=== PATIENT | male | born 1960 | race Caucasian/White ===

== ENCOUNTER → 2016-07-10 | Outpatient (CLI) | payer BC, OTHER ==
[~2016-07-10] MED LIST: ACET50TA PO; CALC500T36 PO; CALCTAB93 PO; CEFD1CAP8 PO; CIPR500T89 PO; E-Z-PAQUE 96% w/w SUSP 176GM BTL As Ordered ONE; FLAG500T PO; LIQUID POLIBAR PLUS 105% w/v 1900ML BTL As Ordered ONE; METR500T10 PO; TYLE650T30 PO; VITA10006 PO; VITACAP33 PO
--- NOTE | 2016-07-10 17:35 | REP ---
BARIUM ENEMA SINGLE CONTRAST: The procedure was performed under the direct supervision of Dr. Jacobs. The images were reviewed with Dr. Jacobs. The registered respiratory therapist film demonstrates dilated loops of small and large intestine consistent with a left colonic obstruction. Liquid barium was instilled into the colon in a retrograde flow. 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 3 minutes and 58 seconds of fluoroscopic time was utilized for this procedure. Reviewed by WENDY Allen 07/11/2016 04:35 PEdited and Signed by Donta Jacobs MD 07/11/2016 04:51 P
== END ==
LOC: M RAD 08:35
PROVIDERS: ATTEND Physician Assistant Medical
DX: R93.3 Abnormal findings on diagnostic imaging of other parts of digestive tract (principal); R19.7 Diarrhea, unspecified; R63.4 Abnormal weight loss; R10.84 Generalized abdominal pain

== ENCOUNTER → 2016-07-15 | Outpatient (CLI) | payer BC, OTHER ==
[~2016-07-15] MED LIST changes: +CALC600T53 PO; -E-Z-PAQUE 96% w/w SUSP 176GM BTL As Ordered ONE; -LIQUID POLIBAR PLUS 105% w/v 1900ML BTL As Ordered ONE; +MIRA33504 PO; +NEXI20CA PO
[2016-07-15 08:49] LABS: MEAN CORPUSCULAR HEMOGLOBIN 26.6 pg (27.0-33.0); MEAN CORPUSCULAR HGB CONC 32.5 g/dl (32.0-36.5); RED CELL DISTRIBUTION WIDTH 14.7 % (11.5-14.5); WHITE BLOOD COUNT 6.5 K/mm3 (4.0-10.0)
[2016-07-15 09:24] LABS: BASOPHILS 1 % (0-4); EOSINOPHILS 2 % (0-5)
[2016-07-15 11:10] LABS: ANION GAP 11 MEQ/L (8-16); BLOOD UREA NITROGEN 10 MG/DL (7-18); CARBON DIOXIDE LEVEL 27 MEQ/L (21-32); CHLORIDE LEVEL 104 MEQ/L (98-107); CREATININE FOR GFR 0.84 MG/DL (0.70-1.30); GLOMERULAR FILTRATION RATE > 60.0 (>56); GLUCOSE, FASTING 98 MG/DL (70-105); POTASSIUM SERUM 4.3 MEQ/L (3.5-5.1); SODIUM LEVEL 142 MEQ/L (136-145)
[2016-07-15 11:11] LABS: ALBUMIN 3.6 GM/DL (3.2-5.2); ALBUMIN/GLOBULIN RATIO 0.95 (1.00-1.93); ALKALINE PHOSPHATASE 68 U/L (45-117); ALT/SGPT 19 U/L (12-78); AST/SGOT 15 U/L (15-37); BILIRUBIN,TOTAL 0.6 MG/DL (0.2-1.0); TOTAL PROTEIN 7.4 GM/DL (6.4-8.2)
[2016-07-16 09:21] LABS: CARCINOEMBRYONIC ANTIGEN 0.9 NG/ML (<2.5)
== END ==
LOC: M LAB 08:33
PROVIDERS: ATTEND Surgery
DX: K57.32 Diverticulitis of large intestine without perforation or abscess without bleeding (principal)

== ENCOUNTER 2016-07-19 07:35 | Inpatient (IN) | payer BC, OTHER ==
[2016-07-19] VITALS (7 sets, daily range): BP systolic 124–136; BP diastolic 67–77
[~2016-07-19] VITALS: Ht 175.3 cm; Wt 78.5 kg
[~2016-07-19 07:35] MED LIST changes: +BUPIVACAINE HCL 0.25% 30 ML VIAL As Ordered ONE
[2016-07-19] MEDS ORDERED: ALVIMOPAN 12 MG CAPSULE (ENTEREG) PO ONE (08:00)
[2016-07-19] MEDS ORDERED: ERTAPENEM SODIUM 1 GM in NS MINI-BAG PLUS 50 ML IV ONE (08:00)
[2016-07-19] MEDS ORDERED: LR 1,000 ML IV SCH ×3 (08:00→15:45)
[2016-07-19] MEDS ORDERED: LIDOCAINE 2% INJ 100 MG/5 ML SDV (FOR ANES.) As Ordered ONE (08:32)
[2016-07-19] MEDS ORDERED: MIDAZOLAM INJ 2 MG/2 ML VIAL (J2250) As Ordered ONE (08:32)
[2016-07-19] MEDS ORDERED: ROCURONIUM BROMIDE 50 MG/5 ML VIAL As Ordered ONE ×2 (08:32→10:57)
[2016-07-19] MEDS ORDERED: PROPOFOL 200 MG/20 ML VIAL As Ordered ONE (08:32)
[2016-07-19] MEDS ORDERED: dexameTHASONE 4 MG/ML 1ML VIAL (J1100) As Ordered ONE (08:32)
[2016-07-19] MEDS ORDERED: fentaNYL 250 MCG/5 ML INJECTION (J3010) As Ordered ONE (08:32)
[2016-07-19] MEDS ORDERED: NEOSTIGMINE 1MG/ML 5 ML SYRINGE (J2710) As Ordered ONE ×2 (08:36→12:07)
[2016-07-19] MEDS ORDERED: GLYCOPYRROLATE INJ 0.2 MG/ML 2 ML VIAL As Ordered ONE ×2 (08:36→12:07)
[2016-07-19] MEDS ORDERED: SUGAMMADEX SODIUM 500 MG/5 ML VIAL (BRIDION) As Ordered ONE (08:37)
[2016-07-19] MEDS ORDERED: ePHEDrine SULFATE 25 MG/5 ML(5MG/ML) SYRINGE As Ordered ONE (10:25)
[2016-07-19] MEDS ORDERED: REMIFENTANIL 1MG 3ML VIAL As Ordered ONE ×2 (11:15)
[2016-07-19] MEDS ORDERED: BUPIVACAINE HCL 0.25% 30 ML VIAL XX ONE (11:26)
[2016-07-19] MEDS ORDERED: HYDROmorphone HCL 2 MG/ML 1ML VIAL (J1170) As Ordered ONE (12:06)
[2016-07-19] MEDS ORDERED: SEVOFLURANE INHAL SOLN 250 ML BTL As Ordered ONE (12:36)
[2016-07-19] MEDS ORDERED: ONDANSETRON 4MG/2ML VIAL (J2405) As Ordered ONE (12:53)
[2016-07-19] MEDS ORDERED: KETOROLAC 60 MG/2 ML VIAL (J1885) As Ordered ONE (14:21)
[2016-07-19] MEDS: LR 1,000 ML IV SCH (14:47)
[2016-07-19] MEDS ORDERED: MORPHINE 2 MG/ML 1ML SYRINGE IV PRN (15:00)
[2016-07-19] MEDS ORDERED: ACETAMINOPHEN TAB 650MG DOSE (2X325MG) PO PRN (15:00)
[2016-07-19] MEDS ORDERED: ONDANSETRON 4MG/2ML VIAL (J2405) IV PRN ×2 (15:00→15:45)
[2016-07-19] MEDS ORDERED: NORCO, ANEXSIA 5/325MG TABLET (HYDROcodone/ACETAMINOPHEN) PO PRN (15:00)
[2016-07-19] MEDS ORDERED: METOCLOPRAMIDE INJ 10MG/2ML VIAL (J2765) IV PRN ×2 (15:00→15:45)
[2016-07-19] MEDS ORDERED: fentaNYL 100 MCG/2 ML INJECTION (J3010) As Ordered ONE (15:29)
[2016-07-19] MEDS: fentaNYL 100 MCG/2 ML INJECTION (J3010) IV PRN ×2 (15:30→15:35)
[2016-07-19] MEDS ORDERED: PERCOCET 5MG/325MG TAB PO PRN (15:45)
[2016-07-19] MEDS: PANTOPRAZOLE 40MG INJ (PROTONIX) (C9113) IV SCH (17:13)
[2016-07-19] MEDS: ENOXAPARIN 40 MG/0.4 ML SYRINGE (J1650) SC SCH (17:14)
[2016-07-19] MEDS: ALVIMOPAN 12 MG CAPSULE (ENTEREG) PO SCH (21:23)
[2016-07-19] MEDS: KETOROLAC 30 MG/ML VIAL (J1885) IV SCH (21:24)
[2016-07-20] MEDS: LR 1,000 ML IV SCH (01:26)
[2016-07-20 02:00] VITALS: BP 114/72
[2016-07-20] MEDS: KETOROLAC 30 MG/ML VIAL (J1885) IV SCH ×4 (04:01→20:12)
[2016-07-20 06:00] VITALS: BP 115/64
[2016-07-20 06:37] LABS: EOS % 0.5 % (0.0-3.0); LARGE UNSTAINED CELL # 0.1 K/mm3 (0.0-0.4); LARGE UNSTAINED CELL % 1.7 % (0.0-4.0); LYMPH # 1.3 K/mm3 (1.5-4.5); MEAN CORPUSCULAR HEMOGLOBIN 26.9 pg (27.0-33.0); MEAN CORPUSCULAR HGB CONC 31.9 g/dl (32.0-36.5); MEAN CORPUSCULAR VOLUME 84.3 fl (80.0-96.0); MONO # 0.4 K/mm3 (0.0-0.8); MONO % 5.5 % (0.0-5.0); NEUTROPHILS # 4.8 K/mm3 (1.8-7.7); NEUTROPHILS % 72.3 % (36.0-66.0); PLATELET COUNT, AUTOMATED 216 k/mm3 (150-450); RED CELL DISTRIBUTION WIDTH 13.7 % (11.5-14.5); WHITE BLOOD COUNT 6.6 K/mm3 (4.0-10.0)
[2016-07-20 07:02] LABS: ANION GAP 8 MEQ/L (8-16); BLOOD UREA NITROGEN 9 MG/DL (7-18); CARBON DIOXIDE LEVEL 29 MEQ/L (21-32); CHLORIDE LEVEL 105 MEQ/L (98-107); CREATININE FOR GFR 0.73 MG/DL (0.70-1.30); GLOMERULAR FILTRATION RATE > 60.0 (>56); GLUCOSE, FASTING 89 MG/DL (70-105); POTASSIUM SERUM 3.8 MEQ/L (3.5-5.1); SODIUM LEVEL 142 MEQ/L (136-145)
[2016-07-20] MEDS: ENOXAPARIN 40 MG/0.4 ML SYRINGE (J1650) SC SCH (09:15)
[2016-07-20] MEDS: PANTOPRAZOLE 40MG INJ (PROTONIX) (C9113) IV SCH (09:15)
[2016-07-20] MEDS: ALVIMOPAN 12 MG CAPSULE (ENTEREG) PO SCH ×2 (09:15→20:11)
[2016-07-20] MEDS: NORCO, ANEXSIA 5/325MG TABLET (HYDROcodone/ACETAMINOPHEN) PO PRN (09:15)
[2016-07-20 10:00] VITALS: BP 121/69
--- NOTE | 2016-07-20 11:40 | RO ---
DATE OF PROCEDURE: 07/19/2016 PREOPERATIVE DIAGNOSIS: Sigmoid colon obstruction. POSTOPERATIVE DIAGNOSIS: Sigmoid colon obstruction. PROCEDURE PERFORMED: Laparoscopic sigmoid colectomy with stapled colorectal anastomosis SURGEON: Dr. Evaristo Das MORNING NANNY: Dr. Guy ANESTHESIA: General. INDICATIONS FOR PROCEDURE: The patient is a 56-year-old man who recently presented with a long history of symptoms consistent with a worsening sigmoid obstruction. A barium enema showed an apple core type lesion in the sigmoid colon with high-grade obstruction. He had undergone a colonoscopy approximately a year and half earlier that had shown a stricture at that time with no evidence of cancer. He has been passing some stool and it was possible to perform a bowel preparation and he is now admitted to undergo a sigmoid resection. OPERATIVE PROCEDURE: The patient was placed under general endotracheal anesthesia. The patient was placed supine on the operating table with the lower extremities placed in padded leg holders. A Persaud catheter was inserted. A digital rectal examination showed no palpable lesions within the rectum. The patient's abdomen and perineum were prepped and draped in a sterile fashion. 0.25% Marcaine was infiltrated at each of the trocar sites prior to insertion. A short supraumbilical midline incision was made and a Francy cannula was inserted. The abdomen was insufflated with carbon dioxide gas. The laparoscope was placed. Initial examination showed dilated colon as well as dilated loops of small bowel in the right side of the abdomen. There were inflammatory changes in the left side of the pelvis where the sigmoid colon was densely adherent to the lateral pelvic wall. A 5 mm trocar was placed in the right lower quadrant slightly below the level of the umbilicus. A 12 mm trocar was placed in the right lower quadrant. The patient was tilted to a fairly steep Trendelenburg position. Dissection was performed using the harmonic scalpel. The omentum was adherent down onto the sigmoid colon and these adhesions were lysed and the omentum moved into the upper abdomen. The attachments of the sigmoid colon to the lateral pelvic wall were quite dense. Some filmier areas of adhesions could be divided easily but the denser areas were more difficult. The lateral attachments of the descending colon were divided proximally to the proximal descending. This provided some leeway in mobilization of the sigmoid. In order to simplify the dissection of the sigmoid, the colon was divided just proximal to this with an echelon stapler. Because the colon was quite dilated, it was necessary to use two loads of the stapler to complete the division of the colon. The mesentery was divided down to its base. Then working distally, the attachments of the sigmoid colon mesentery were divided. The left ureter was identified and carefully preserved during the course of dissection. The harmonic scalpel was used primarily to divide the dense attachments of the colon to the pelvic sidewall. With slow careful dissection, it was possible to obtain a complete freeing of the sigmoid colon. Once this had been freed, a point for division of the rectosigmoid area was selected. The mesentery was divided to the bowel wall and the upper rectum was divided with the echelon stapler. The pelvis was irrigated and inspected and there was no significant bleeding. The appearance of the colon was, I thought, most consistent with inflammatory disease from diverticulitis with extensive scarring rather than cancer. Initial inspection suggested that the colon was not mobile enough to reach down into the pelvis for an anastomosis at this point. Therefore the patient was repositioned and additional dissection of the descending colon was performed. Some of the attachments in the area of the spleen were divided to allow greater mobility. The peritoneum overlying the inferior mesenteric artery was also divided to allow greater mobility. Once these additional steps had been taken, it appeared that the colon was now long enough to reach for a pelvic anastomosis. In the course of dissection a fourth trocar, 5 mm in diameter, was placed in the left upper quadrant for additional traction. At this point, the abdomen was deflated and an incision was made beginning at the Bella site and extending down around the left side of the umbilicus. This incision was extended to approximately 6 cm. A small Mobius retractor was placed. The specimen was grasped and delivered through the incision without significant difficulty. The specimen was set aside for now. The end of the descending colon was then delivered through the wound. The bowel appeared viable. There was a small duskier area at one end of the staple line. The colon remained somewhat distended with air and some fluid. The wall of the colon was quite hypertrophied and muscular. The bowel was occluded with noncrushing clamps and the end of the staple line was excised. A long pool sucker was inserted and the bowel clamps were removed and the suction advanced as high up in the descending colon as possible. A large amount of air and some liquid yellow/green stool was returned. The suction was removed. I elected to prepare the end of the colon for an anastomosis. Because of the thickening of the bowel wall, I elected to take some additional steps. I selected a 33 mm EEA stapler. The anvil was removed. The sharply pointed attachment was placed on the post of the anvil and this was inserted into the end of the colon. The opened area of the staple line was then re-stapled excising a small portion of the colon in this area with an echelon stapler. The post of the anvil was then passed through the end of the colon adjacent to the staple line at about the midpoint of the staple line. The ends of the staple line, which would not be involved in the anastomosis were then oversewn with inverting sutures of #3-0 Vicryl. The end of the bowel was then irrigated. I placed a small pursestring suture around the post of the anvil to prevent leakage. This was then reduced into the abdomen. The surgical team then changed gowns and gloves. The abdominal incision was closed with #0 chromic on the peritoneum and interrupted #1-0 Vicryl sutures for the fascia. The abdomen was then reinflated. With the patient in a Trendelenburg position, the post of the anvil was then grasped and the colon was advanced down into the pelvis. I then moved to the perineum. The anus and rectum were gently dilated with the EEA sizers and the EEA stapler was then advanced into the rectum and advanced to the stapled end without significant difficulty. The post of the stapler was advanced adjacent to the staple line and the post of the anvil was attached and the stapler was then carefully closed and fired. The stapler was removed and inspection revealed two excellent tissue doughnuts from within the stapler. A flexible sigmoidoscopic exam was performed with a colonoscope. This revealed a nice intact circular anastomosis. There was a minimal amount of particulate debris and liquid within the colon. There was no bleeding seen. The anastomosis appeared to lie at approximately 17 cm from the anal verge. The scope was removed. No air bubbles had been seen at the anastomosis with insufflation of air into the rectum. I then changed gown and gloves and returned to the abdomen. The abdomen was cleared of all of the irrigation, which had been placed for the leak test. The patient was returned to a flat position. There did not appear to be any tension on the anastomosis. No bleeding was identified. The 12 mm trocar in the right lower quadrant was removed and the inner fascia and peritoneum were closed with a suture of #0 Vicryl placed with an Endo Close device. The abdomen was then deflated through the remaining two trocars and these were then removed. The skin incisions were all closed with buried #4-0 Vicryl. Light dressings were applied. The patient tolerated the procedure well. I would note that just prior to completing the anastomosis, the specimen was opened on the back table. The wall of the bowel was quite thickened but opening of the lumen showed no mucosal abnormalities. These findings were consistent with inflammatory changes from diverticulitis. The patient was awakened in the operating room, extubated and moved to the recovery room in stable condition. RACHELLE
[2016-07-20 14:00] VITALS: BP 126/72
[2016-07-20] MEDS: SIMETHICONE 80 MG CHEW TAB PO PRN (20:43)
[2016-07-20 22:00] VITALS: BP 126/71
[2016-07-21 02:00] VITALS: BP 119/64
[2016-07-21] MEDS: KETOROLAC 30 MG/ML VIAL (J1885) IV SCH ×3 (02:07→15:58)
[2016-07-21] MEDS: SIMETHICONE 80 MG CHEW TAB PO PRN (02:07)
[2016-07-21 06:00] VITALS: BP 135/63
[2016-07-21] MEDS: NORCO, ANEXSIA 5/325MG TABLET (HYDROcodone/ACETAMINOPHEN) PO PRN ×3 (09:00→21:57)
[2016-07-21] MEDS: PANTOPRAZOLE 40MG INJ (PROTONIX) (C9113) IV SCH (09:00)
[2016-07-21] MEDS: ENOXAPARIN 40 MG/0.4 ML SYRINGE (J1650) SC SCH (09:00)
[2016-07-21] MEDS: ALVIMOPAN 12 MG CAPSULE (ENTEREG) PO SCH ×2 (09:00→20:36)
[2016-07-21 10:00] VITALS: BP 129/66
[2016-07-21 14:00] VITALS: BP 106/58
[2016-07-21 22:00] VITALS: BP 155/76
[2016-07-21] MEDS: LR 1,000 ML IV SCH (22:57)
[2016-07-21 23:43] LABS: MEAN CORPUSCULAR HEMOGLOBIN 26.8 pg (27.0-33.0); MEAN CORPUSCULAR HGB CONC 32.4 g/dl (32.0-36.5); MEAN CORPUSCULAR VOLUME 82.6 fl (80.0-96.0); RED CELL DISTRIBUTION WIDTH 13.7 % (11.5-14.5); WHITE BLOOD COUNT 5.2 K/mm3 (4.0-10.0)
[2016-07-22] VITALS (9 sets, daily range): BP systolic 94–115; BP diastolic 51–69
--- NOTE | 2016-07-22 00:20 | REPUSA ---
CLINICAL HISTORY: Abdominal pain. COMMENTS: There is gas in both large and small bowel with no evidence for obstruction. Large amount of fecal material is present through out the colon. There is no evidence for free air, free fluid, masses, organomegaly, or urinary calculi. Impression: Large amount of fecal material. Thank you for your kind referral of this patient.
[2016-07-22] MEDS: NORCO, ANEXSIA 5/325MG TABLET (HYDROcodone/ACETAMINOPHEN) PO PRN (03:45)
[2016-07-22] MEDS: SIMETHICONE 80 MG CHEW TAB PO PRN (05:14)
[2016-07-22] MEDS: ALVIMOPAN 12 MG CAPSULE (ENTEREG) PO SCH ×3 (08:28→23:03)
[2016-07-22] MEDS: ENOXAPARIN 40 MG/0.4 ML SYRINGE (J1650) SC SCH (08:28)
[2016-07-22] MEDS: PANTOPRAZOLE 40MG INJ (PROTONIX) (C9113) IV SCH (08:28)
[2016-07-22] MEDS: LR 1,000 ML IV SCH ×3 (08:28→19:00)
[2016-07-22] MEDS: PIPERACILLIN/TAZOBACTAM SOD 3.375 GM in D5W MINI-BAG PLUS 50 ML IV SCH ×3 (08:29→22:36)
[2016-07-22 08:56] LABS: MEAN CORPUSCULAR HEMOGLOBIN 26.8 pg (27.0-33.0); MEAN CORPUSCULAR HGB CONC 32.3 g/dl (32.0-36.5); PLATELET COUNT, AUTOMATED 205 k/mm3 (150-450); RED CELL DISTRIBUTION WIDTH 14.5 % (11.5-14.5); WHITE BLOOD COUNT 4.4 K/mm3 (4.0-10.0)
[2016-07-22 09:02] LABS: ALBUMIN 2.1 GM/DL (3.2-5.2); ALBUMIN/GLOBULIN RATIO 0.78 (1.00-1.93); ALKALINE PHOSPHATASE 45 U/L (45-117); ALT/SGPT 9 U/L (12-78); ANION GAP 10 MEQ/L (8-16); AST/SGOT 10 U/L (15-37); BILIRUBIN,TOTAL 1.3 MG/DL (0.2-1.0); BLOOD UREA NITROGEN 15 MG/DL (7-18); CALCIUM LEVEL 7.9 MG/DL (8.5-10.1); CARBON DIOXIDE LEVEL 24 MEQ/L (21-32); CHLORIDE LEVEL 106 MEQ/L (98-107); CREATININE FOR GFR 0.89 MG/DL (0.70-1.30); GLOMERULAR FILTRATION RATE > 60.0 (>56); GLUCOSE, FASTING 105 MG/DL (70-105); POTASSIUM SERUM 3.3 MEQ/L (3.5-5.1); SODIUM LEVEL 140 MEQ/L (136-145); TOTAL PROTEIN 4.8 GM/DL (6.4-8.2)
--- NOTE | 2016-07-22 09:48 | REP ---
ACUTE ABDOMINAL SERIES: 07/22/2016. Comparison: Supine and 07/21/2016, barium enema 07/10/2016, CT abdomen and pelvis 03/05/2016. Clinical history: Evaluate for anastomotic leak. AP chest: Supine chest shows low level of inflation. There is retrocardiac left lower lobe atelectasis. Small blunting of left CP angle suggesting effusion or atelectasis. Right lung shows crowding of markings without definite infiltrate. The cardiomediastinal silhouette and airway grossly intact. Abdomen: Supine and lateral decubitus views of the abdomen were provided. There are anastomotic sutures in the left lower quadrant without a visible ostomy. Some tubing overlies the right hip, pelvis and abdomen. On decubitus views, there is large amounts of free air with an air-fluid level, the air extending into the diaphragm and creating a very large air gap with the liver and bowel loops. There are some mildly prominent small bowel loops in the deep pelvis. Scattered stool and gas in right colon. Bones unchanged. Impression: 1. There is evidence of significant perforation with large volume of free air and an air fluid level on the lateral decubitus views. 2. Anastomotic sutures in the left lower quadrant in the pelvis. There are hypoinflated lung davis with retrocardiac left lower lobe atelectasis or infiltrate. Retained stool in the right colon and mildly prominent small bowel loops in the deep pelvis. A phone call is pending to the requesting surgeon at the time of this dictation. Signed by Nate Granados MD 07/22/2016 10:18 A
[2016-07-22 10:00] LABS: BANDS 11 % (< 11); POIKILOCYTOSIS 1+
[2016-07-22 10:02] LABS: ANISOCYTOSIS 1+; TOXIC GRANULATION 1+
[2016-07-22] MEDS: MORPHINE 2 MG/ML 1ML SYRINGE IV PRN ×2 (10:06→13:10)
[2016-07-22] MEDS ORDERED: PROPOFOL 200 MG/20 ML VIAL As Ordered ONE (15:39)
[2016-07-22] MEDS ORDERED: fentaNYL 250 MCG/5 ML INJECTION (J3010) As Ordered ONE (15:39)
[2016-07-22] MEDS ORDERED: LIDOCAINE 2% INJ 100 MG/5 ML SDV (FOR ANES.) As Ordered ONE (15:39)
[2016-07-22] MEDS ORDERED: ROCURONIUM BROMIDE 50 MG/5 ML VIAL As Ordered ONE ×2 (15:39→17:04)
[2016-07-22] MEDS ORDERED: MIDAZOLAM INJ 2 MG/2 ML VIAL (J2250) As Ordered ONE (15:40)
[2016-07-22] MEDS ORDERED: FLUCONAZOLE 400 MG in APPROPRIATE DILUENT 1 EA IV SCH (16:00)
[2016-07-22] MEDS ORDERED: PHENYLephrine HCL 500 MCG/5 ML (100MCG/ML) SYRINGE (J2370) As Ordered ONE (16:39)
[2016-07-22] MEDS ORDERED: PHENYLEPHRINE INJ 10MG/ML VIAL (J2370) As Ordered ONE (16:42)
[2016-07-22] MEDS ORDERED: HYDROmorphone HCL 2 MG/ML 1ML VIAL (J1170) As Ordered ONE (17:05)
[2016-07-22] MEDS ORDERED: ONDANSETRON 4MG/2ML VIAL (J2405) As Ordered ONE (17:39)
[2016-07-22] MEDS ORDERED: GLYCOPYRROLATE INJ 0.2 MG/ML 2 ML VIAL As Ordered ONE (17:39)
[2016-07-22] MEDS ORDERED: NEOSTIGMINE 1MG/ML 5 ML SYRINGE (J2710) As Ordered ONE (17:39)
[2016-07-22] MEDS ORDERED: ePHEDrine SULFATE 25 MG/5 ML(5MG/ML) SYRINGE As Ordered ONE ×2 (18:42→19:43)
[2016-07-22] MEDS ORDERED: fentaNYL 100 MCG/2 ML INJECTION (J3010) IV PRN (19:45)
[2016-07-22] MEDS: ePHEDrine SULFATE 25 MG/5 ML(5MG/ML) SYRINGE IV PRN ×4 (19:45→20:00)
[2016-07-22] MEDS ORDERED: PERCOCET 5MG/325MG TAB PO PRN (19:45)
[2016-07-22] MEDS ORDERED: ONDANSETRON 4MG/2ML VIAL (J2405) IV PRN (19:45)
[2016-07-22] MEDS ORDERED: MEPERIDINE INJ 25 MG/ML VIAL (J2175) IV PRN (19:45)
[2016-07-22] MEDS ORDERED: METOCLOPRAMIDE INJ 10MG/2ML VIAL (J2765) IV PRN (19:45)
[2016-07-22] MEDS ORDERED: LR 1,000 ML IV SCH (19:45)
[2016-07-22 19:54] LABS: MEAN CORPUSCULAR HEMOGLOBIN 27.1 pg (27.0-33.0); MEAN CORPUSCULAR HGB CONC 32.3 g/dl (32.0-36.5); MEAN CORPUSCULAR VOLUME 83.8 fl (80.0-96.0); RED CELL DISTRIBUTION WIDTH 13.8 % (11.5-14.5); WHITE BLOOD COUNT 3.8 K/mm3 (4.0-10.0)
[2016-07-22] MEDS ORDERED: MORPHINE PCA 1MG/ML 100ML CADD IV PRN (20:00)
[2016-07-22] MEDS ORDERED: NALOXONE INJ 0.4 MG/1 ML VIAL (J2310) IV PRN (20:00)
[2016-07-22] MEDS ORDERED: NALBUPHINE HCL 10 MG/ML AMP (J2300) IV PRN (20:00)
[2016-07-22] MEDS ORDERED: EPIDURAL/PCA KEYS XX PRN (20:00)
[2016-07-22] MEDS ORDERED: diphenhydrAMINE INJ 50MG/ML VIAL (J1200) IV PRN (20:00)
[2016-07-22] MEDS ORDERED: MORPHINE PCA 1MG/ML 100ML CADD As Ordered ONE (20:10)
[2016-07-22 20:23] LABS: ANION GAP 11 MEQ/L (8-16); BLOOD UREA NITROGEN 16 MG/DL (7-18); CALCIUM LEVEL 7.2 MG/DL (8.5-10.1); CARBON DIOXIDE LEVEL 23 MEQ/L (21-32); CHLORIDE LEVEL 109 MEQ/L (98-107); CREATININE FOR GFR 0.81 MG/DL (0.70-1.30); GLOMERULAR FILTRATION RATE > 60.0 (>56); GLUCOSE, FASTING 88 MG/DL (70-105); POTASSIUM SERUM 3.9 MEQ/L (3.5-5.1); SODIUM LEVEL 143 MEQ/L (136-145)
--- NOTE | 2016-07-22 21:57 | RO ---
DATE OF PROCEDURE: 07/22/2016 PREOPERATIVE DIAGNOSIS: Anastomotic leak with peritonitis 3 days status post sigmoid resection. POSTOPERATIVE DIAGNOSIS: Anastomotic leak with peritonitis 3 days status post sigmoid resection. PROCEDURE PERFORMED: Laparotomy with debridement of peritonitis, takedown of colorectal anastomosis, oversewing of rectal stump and end descending colostomy. SURGEON: Dr. Evaristo Das TEMPLATE REPRODUCTION TECHNICIAN: ANESTHESIA: General. INDICATIONS FOR PROCEDURE: The patient is a 56-year-old man who on 07/19/2016 had undergone a laparoscopic sigmoid colectomy with colorectal anastomosis for an obstructing stricture. He had done well for the first 2 days and then on the evening of the second postoperative day had a transient fever and then developed abdominal distension with increasing abdominal pain. X-ray showed a large amount of free intra-abdominal air consistent with an anastomotic leak and he is now for exploratory laparotomy. DESCRIPTION OF PROCEDURE: The patient was transported to the operating room where he was placed under general endotracheal anesthesia. A Persaud catheter was inserted. Thromboembolism deterrents (TEDS) and sequentials were utilized. He was moved into a low lithotomy position with the lower extremities placed in padded leg holders. An orogastric tube was inserted by anesthesia. The patient's abdomen was prepped and draped in a sterile fashion. The abdomen was entered through a low midline incision starting with a short periumbilical incision from his surgery 3 days ago and extending inferiorly to the pubis. The incision was deepened through the subcutaneous tissues using the cautery. The peritoneum was opened and a large amount of gas was released from within the abdomen. It was apparent there was a large amount of yellowish fluid and exudate coating the loops of small bowel encountered on opening the abdomen. The incision was extended through the length of the skin incision. A suction was used to remove approximately 1500 mL of turbid yellowish fluid scattered throughout the abdomen. There was no gross stool noted within the lower abdomen or pelvis but the exudate coated the peritoneal surfaces of both the abdominal wall, over the small bowel, and up onto the liver. Multiple liters of warm saline irrigation were used to irrigate the abdomen of fluid and debris. A lap pad was used to peel the exudate from the loops of small bowel. This was thickest on the distal ileum which was filling the lowest portion of the abdomen. Once the degree of contamination had been reduced significantly, attention was turned to identifying the source of the leak. A Jackson retractor was utilized. Inspection of the anastomosis showed that there was a separation on the posterior aspect of the colorectal anastomosis. This was perhaps a centimeter to a centimeter and half in diameter with multiple surgical alfredo protruding from the edges of the opening. The anterior aspect of the anastomosis appeared intact. Some inflammatory attachments of the descending colon were freed by blunt finger dissection. Additional irrigation of the abdomen was performed with care to irrigate the left and right upper quadrants and to remove the debris from the liver and the anterior abdominal wall with care to avoid any injury of the viscera. The small bowel was again cleared of overlying debris. A large amount of material was removed probably removing 95% the debris that had been noted on entering the abdomen. After studying the anastomosis further, I felt that the safest approach at this point, given the persistent dilation and thickening of the colon wall, would be to take down the colorectal anastomosis, oversew the rectal stump, and create a descending colostomy. The anastomosis was therefore divided by using a pair of heavy scissors to cut the remainder of the staple line. The end of the rectum was grasped with Allis's and a TX60G stapler was placed across the end of the rectum and the remaining staple line from the prior anastomosis was excised. This new staple line was then oversewn with some #3-0 Prolene sutures. The end of the descending colon was occluded with several Allis clamps. A site for colostomy was selected in the left upper quadrant about 2 cm above the level of the umbilicus. A small disk of skin was excised. The subcutaneous fat was divided in cruciate fashion with the cautery and a longitudinal incision was made through the anterior rectus sheath. The muscle fibers were spread and the posterior sheath was also opened in a longitudinal fashion with the cautery. The opening was dilated to 2 to 2-1/2 fingerbreadths. The end of the colon was delivered through this without significant difficulty. Attention was then turned to a final round of irrigation. A total of approximately 6-7 liters of warm saline was used to irrigate the abdomen during the course the procedure. Irrigation continued until there was no further identified particulate debris and the fluid returned without any coloration. Once the irrigation had been removed as thoroughly as possible, the small bowel was inspected a final time and then placed within the abdomen in anatomic distribution. The omentum was pulled down over the small bowel. The peritoneum in the lower two-thirds of the incision was closed with a running suture of #0 chromic. The abdominal fascia was then closed with interrupted simple sutures of #1 Vicryl. The skin incision was closed with widely spaced skin alfredo. Several buried #3-0 Vicryl sutures were used to recreate the umbilicus. I then turned my attention to maturation of the colostomy. The staple line was cut off the end of the descending colon. There appeared to be adequate blood supply. Four corner everting sutures of #3-0 Vicryl were placed which nicely everted the open end of the colon. Multiple additional #3-0 Vicryl sutures were placed to suture the bowel wall to the edge of the skin. An ostomy appliance was cut to the right size and applied. The abdominal incision was covered with Adaptic and a bulky gauze bandage. In the course of the procedure, the orogastric tube had been removed and at my request, a nasogastric tube was inserted and I ensured that this was advanced into the midbody of the stomach appropriately. The patient tolerated the procedure well. He required a Ernie-Synephrine drip at the initiation of procedure for a dip in his blood pressure but his need for this diminished toward the end of the procedure and this was discontinued. He was awakened in the operating room, extubated and moved to the recovery room in stable condition. RACHELLE
[2016-07-22] MEDS: KETOROLAC 30 MG/ML VIAL (J1885) IV SCH (22:38)
[2016-07-23] VITALS (8 sets, daily range): BP systolic 91–106; BP diastolic 53–62
[2016-07-23] MEDS: LR 1,000 ML IV SCH ×4 (00:54→23:00)
[2016-07-23] MEDS: PIPERACILLIN/TAZOBACTAM SOD 3.375 GM in D5W MINI-BAG PLUS 50 ML IV SCH ×4 (03:45→21:53)
[2016-07-23] MEDS: KETOROLAC 30 MG/ML VIAL (J1885) IV SCH ×4 (03:46→21:56)
[2016-07-23 07:59] LABS: MEAN CORPUSCULAR HEMOGLOBIN 26.9 pg (27.0-33.0); MEAN CORPUSCULAR HGB CONC 32.1 g/dl (32.0-36.5); MEAN CORPUSCULAR VOLUME 83.9 fl (80.0-96.0); PLATELET COUNT, AUTOMATED 201 k/mm3 (150-450); WHITE BLOOD COUNT 4.2 K/mm3 (4.0-10.0)
[2016-07-23 08:09] LABS: ALBUMIN 1.4 GM/DL (3.2-5.2); ALBUMIN/GLOBULIN RATIO 0.61 (1.00-1.93); ALKALINE PHOSPHATASE 32 U/L (45-117); ALT/SGPT 13 U/L (12-78); ANION GAP 10 MEQ/L (8-16); AST/SGOT 10 U/L (15-37); BILIRUBIN,TOTAL 0.8 MG/DL (0.2-1.0); BLOOD UREA NITROGEN 24 MG/DL (7-18); CALCIUM LEVEL 7.5 MG/DL (8.5-10.1); CARBON DIOXIDE LEVEL 25 MEQ/L (21-32); CHLORIDE LEVEL 108 MEQ/L (98-107); CREATININE FOR GFR 0.96 MG/DL (0.70-1.30); GLOMERULAR FILTRATION RATE > 60.0 (>56); GLUCOSE, FASTING 120 MG/DL (70-105); POTASSIUM SERUM 3.8 MEQ/L (3.5-5.1); SODIUM LEVEL 143 MEQ/L (136-145); TOTAL PROTEIN 3.7 GM/DL (6.4-8.2)
[2016-07-23 08:36] LABS: BANDS 6 % (< 11); EOSINOPHILS 1 % (0-5)
[2016-07-23] MEDS: PANTOPRAZOLE 40MG INJ (PROTONIX) (C9113) IV SCH (08:51)
[2016-07-23] MEDS: ALVIMOPAN 12 MG CAPSULE (ENTEREG) PO SCH ×2 (08:51→21:56)
[2016-07-23] MEDS: FLUCONAZOLE 200 MG in APPROPRIATE DILUENT 1 EA IV SCH (08:51)
[2016-07-23] MEDS: ENOXAPARIN 40 MG/0.4 ML SYRINGE (J1650) SC SCH (09:00)
[2016-07-23] MEDS: SODIUM CHLORIDE 0.9% INJ 10 ML SYR IV SCH (18:00)
[2016-07-24] MEDS: PIPERACILLIN/TAZOBACTAM SOD 3.375 GM in D5W MINI-BAG PLUS 50 ML IV SCH ×4 (03:12→21:00)
[2016-07-24] MEDS: KETOROLAC 30 MG/ML VIAL (J1885) IV SCH ×4 (03:43→22:00)
[2016-07-24] MEDS: SODIUM CHLORIDE 0.9% INJ 10 ML SYR IV SCH ×2 (05:40→17:55)
[2016-07-24 05:59] LABS: MEAN CORPUSCULAR HEMOGLOBIN 26.5 pg (27.0-33.0); MEAN CORPUSCULAR HGB CONC 31.9 g/dl (32.0-36.5); PLATELET COUNT, AUTOMATED 196 k/mm3 (150-450); RED CELL DISTRIBUTION WIDTH 14.1 % (11.5-14.5); WHITE BLOOD COUNT 4.9 K/mm3 (4.0-10.0)
[2016-07-24 06:00] VITALS: BP 108/65
[2016-07-24 06:30] LABS: ANION GAP 8 MEQ/L (8-16); BLOOD UREA NITROGEN 24 MG/DL (7-18); CALCIUM LEVEL 7.4 MG/DL (8.5-10.1); CARBON DIOXIDE LEVEL 28 MEQ/L (21-32); CHLORIDE LEVEL 108 MEQ/L (98-107); CREATININE FOR GFR 0.75 MG/DL (0.70-1.30); GLOMERULAR FILTRATION RATE > 60.0 (>56); GLUCOSE, FASTING 62 MG/DL (70-105); POTASSIUM SERUM 3.3 MEQ/L (3.5-5.1); SODIUM LEVEL 144 MEQ/L (136-145)
[2016-07-24 06:47] LABS: BANDS 1 % (< 11); EOSINOPHILS 3 % (0-5)
[2016-07-24 06:48] LABS: CRENATED RBC 1+
[2016-07-24 06:49] LABS: OVALOCYTES 1+
[2016-07-24] MEDS: D5W/LR 1,000 ML IV SCH (09:41)
[2016-07-24] MEDS: FLUCONAZOLE 200 MG in APPROPRIATE DILUENT 1 EA IV SCH (09:41)
[2016-07-24] MEDS: ENOXAPARIN 40 MG/0.4 ML SYRINGE (J1650) SC SCH (09:41)
[2016-07-24] MEDS: ALVIMOPAN 12 MG CAPSULE (ENTEREG) PO SCH ×2 (09:42→22:18)
[2016-07-24] MEDS: PANTOPRAZOLE 40MG INJ (PROTONIX) (C9113) IV SCH (09:42)
[2016-07-24] MEDS: POTASSIUM CHLORIDE 10 MEQ SR TABLET PO SCH ×3 (09:42→22:18)
[2016-07-24 10:00] VITALS: BP 103/56
[2016-07-24 14:00] VITALS: BP 107/58
--- NOTE | 2016-07-24 15:07 | REP ---
Procedure: PICC line insertion with [place] The procedure was performed under the direct supervision of Dr. Jacobs. The risks and benefits of the procedure were explained to the patient and informed consent was obtained. The right brachial vein was localized using ultrasound guidance. The skin was prepped and draped in a sterile fashion. 2% lidocaine was used as a local anesthetic. Using ultrasound guidance the brachial vein was cannulated and a 0.018 guidewire was inserted and advanced to the SVC using fluoroscopic guidance. The needle was removed and a 5.5 Czech dilator and peel-away sheath was inserted over the guide wire. A 5.5 Czech dual lumen catheter was cut to length of 40 cm. The dilator was removed and the catheter was inserted over the guide wire with the tip ending in the SVC. The peel-away sheath was removed and the catheter was flushed with heparinized saline as per Hospital protocol. The catheter was affixed to the skin and a sterile dressing was applied. The the patient tolerated the procedure well and there were no immediate complications. 0.2 minutes of fluoro time was utilized for this procedure. Reviewed by WENDY Allen 07/23/2016 05:05 PSigned by Donta Jacobs MD 07/24/2016 02:58 P
[2016-07-24] MEDS: HumaLOG INSULIN (NovoLOG) PER UNIT SC SCH (17:55)
[2016-07-24 18:00] VITALS: BP 103/60
[2016-07-24] MEDS ORDERED: FAT EMULSION IV 20% 500 ML IV SCH (18:00)
[2016-07-24] MEDS ORDERED: MULTIVITAMIN -ADULT INJECTION 10 ML, CR/CU/SE/MN/ZN INJ 1 ML in AMINO AC/ELECTROLYTE/DE... IV SCH (18:00)
[2016-07-24 22:00] VITALS: BP 110/64
[2016-07-25 02:00] VITALS: BP 103/61
[2016-07-25] MEDS: PIPERACILLIN/TAZOBACTAM SOD 3.375 GM in D5W MINI-BAG PLUS 50 ML IV SCH ×4 (03:25→20:05)
[2016-07-25] MEDS: KETOROLAC 30 MG/ML VIAL (J1885) IV SCH (03:27)
[2016-07-25 06:00] VITALS: BP 104/58
[2016-07-25] MEDS: SODIUM CHLORIDE 0.9% INJ 10 ML SYR IV SCH ×2 (06:00→18:44)
[2016-07-25] MEDS: HumaLOG INSULIN (NovoLOG) PER UNIT SC SCH ×3 (06:00→12:13)
[2016-07-25] MEDS: D5W/LR 1,000 ML IV SCH (06:25)
[2016-07-25 06:42] LABS: ALBUMIN 1.2 GM/DL (3.2-5.2); ALBUMIN/GLOBULIN RATIO 0.46 (1.00-1.93); ALKALINE PHOSPHATASE 41 U/L (45-117); ALT/SGPT 7 U/L (12-78); ANION GAP 9 MEQ/L (8-16); AST/SGOT 10 U/L (15-37); BILIRUBIN,TOTAL 0.6 MG/DL (0.2-1.0); BLOOD UREA NITROGEN 15 MG/DL (7-18); CALCIUM LEVEL 7.1 MG/DL (8.5-10.1); CARBON DIOXIDE LEVEL 26 MEQ/L (21-32); CHLORIDE LEVEL 109 MEQ/L (98-107); CREATININE FOR GFR 0.67 MG/DL (0.70-1.30); GLOMERULAR FILTRATION RATE > 60.0 (>56); GLUCOSE, FASTING 217 MG/DL (70-105); POTASSIUM SERUM 3.1 MEQ/L (3.5-5.1); SODIUM LEVEL 144 MEQ/L (136-145); TOTAL PROTEIN 3.8 GM/DL (6.4-8.2)
[2016-07-25 06:51] LABS: BASO % 0.1 % (0.0-1.0); EOS % 0.3 % (0.0-3.0); LARGE UNSTAINED CELL # 0.2 K/mm3 (0.0-0.4); LARGE UNSTAINED CELL % 1.1 % (0.0-4.0); LYMPH # 0.4 K/mm3 (1.5-4.5); MEAN CORPUSCULAR HEMOGLOBIN 26.4 pg (27.0-33.0); MEAN CORPUSCULAR HGB CONC 31.4 g/dl (32.0-36.5); MEAN CORPUSCULAR VOLUME 84.2 fl (80.0-96.0); MONO % 7.8 % (0.0-5.0); NEUTROPHILS # 11.4 K/mm3 (1.8-7.7); NEUTROPHILS % 87.7 % (36.0-66.0); PLATELET COUNT, AUTOMATED 188 k/mm3 (150-450); RED CELL DISTRIBUTION WIDTH 14.2 % (11.5-14.5)
[2016-07-25] MEDS ORDERED: KETOROLAC 30 MG/ML VIAL (J1885) IV PRN (08:00)
[2016-07-25 08:53] VITALS: BP 119/68
[2016-07-25] MEDS: ALVIMOPAN 12 MG CAPSULE (ENTEREG) PO SCH ×2 (09:45→20:04)
[2016-07-25] MEDS: ENOXAPARIN 40 MG/0.4 ML SYRINGE (J1650) SC SCH (09:46)
[2016-07-25] MEDS: POTASSIUM CHLORIDE 10 MEQ SR TABLET PO SCH ×2 (09:47→20:04)
[2016-07-25] MEDS: FLUCONAZOLE 200 MG in APPROPRIATE DILUENT 1 EA IV SCH (09:48)
[2016-07-25] MEDS: PERCOCET 5MG/325MG TAB PO PRN ×2 (12:56→20:04)
[2016-07-25 13:25] VITALS: BP 131/63
[2016-07-25 14:00] VITALS: BP 100/61
[2016-07-25 22:00] VITALS: BP 116/67
[2016-07-26] VITALS (7 sets, daily range): BP systolic 115–131; BP diastolic 65–81
[2016-07-26] MEDS: PIPERACILLIN/TAZOBACTAM SOD 3.375 GM in D5W MINI-BAG PLUS 50 ML IV SCH ×4 (03:00→21:16)
[2016-07-26] MEDS: PERCOCET 5MG/325MG TAB PO PRN ×4 (03:29→21:18)
[2016-07-26] MEDS: SODIUM CHLORIDE 0.9% INJ 10 ML SYR IV SCH ×2 (06:00→16:46)
[2016-07-26 06:20] LABS: BASO % 0.1 % (0.0-1.0); EOS # 0.1 K/mm3 (0.0-0.50); LARGE UNSTAINED CELL # 0.2 K/mm3 (0.0-0.4); LARGE UNSTAINED CELL % 1.4 % (0.0-4.0); LYMPH # 0.6 K/mm3 (1.5-4.5); MEAN CORPUSCULAR HEMOGLOBIN 26.4 pg (27.0-33.0); MEAN CORPUSCULAR HGB CONC 31.5 g/dl (32.0-36.5); MEAN CORPUSCULAR VOLUME 83.9 fl (80.0-96.0); MONO # 0.6 K/mm3 (0.0-0.8); MONO % 4.8 % (0.0-5.0); NEUTROPHILS # 11.1 K/mm3 (1.8-7.7); NEUTROPHILS % 87.5 % (36.0-66.0); PLATELET COUNT, AUTOMATED 187 k/mm3 (150-450); RED CELL DISTRIBUTION WIDTH 14.4 % (11.5-14.5); WHITE BLOOD COUNT 12.6 K/mm3 (4.0-10.0)
[2016-07-26 06:35] LABS: ANION GAP 9 MEQ/L (8-16); BLOOD UREA NITROGEN 16 MG/DL (7-18); CALCIUM LEVEL 7.5 MG/DL (8.5-10.1); CARBON DIOXIDE LEVEL 27 MEQ/L (21-32); CHLORIDE LEVEL 107 MEQ/L (98-107); CREATININE FOR GFR 0.63 MG/DL (0.70-1.30); GLOMERULAR FILTRATION RATE > 60.0 (>56); GLUCOSE, FASTING 70 MG/DL (70-105); POTASSIUM SERUM 3.1 MEQ/L (3.5-5.1); SODIUM LEVEL 143 MEQ/L (136-145)
[2016-07-26] MEDS: POTASSIUM CHLORIDE 10 MEQ SR TABLET PO SCH (10:04)
[2016-07-26] MEDS: ALVIMOPAN 12 MG CAPSULE (ENTEREG) PO SCH ×2 (10:05→21:16)
[2016-07-26] MEDS: ENOXAPARIN 40 MG/0.4 ML SYRINGE (J1650) SC SCH (10:06)
[2016-07-26] MEDS: FLUCONAZOLE 200 MG in APPROPRIATE DILUENT 1 EA IV SCH (10:12)
[2016-07-26] MEDS: SODIUM CHLORIDE 0.9% INJ 10 ML SYR IV PRN ×2 (21:18→22:45)
[2016-07-27 02:00] VITALS: BP 110/62
[2016-07-27] MEDS: SODIUM CHLORIDE 0.9% INJ 10 ML SYR IV PRN (03:16)
[2016-07-27] MEDS: PIPERACILLIN/TAZOBACTAM SOD 3.375 GM in D5W MINI-BAG PLUS 50 ML IV SCH ×4 (03:16→21:04)
[2016-07-27] MEDS: SODIUM CHLORIDE 0.9% INJ 10 ML SYR IV SCH ×2 (05:42→17:09)
[2016-07-27] MEDS: PERCOCET 5MG/325MG TAB PO PRN ×3 (05:44→18:11)
[2016-07-27 06:00] VITALS: BP 137/81
[2016-07-27] MEDS: FLUCONAZOLE 200 MG in APPROPRIATE DILUENT 1 EA IV SCH (08:45)
[2016-07-27] MEDS: ALVIMOPAN 12 MG CAPSULE (ENTEREG) PO SCH (08:46)
[2016-07-27] MEDS: ENOXAPARIN 40 MG/0.4 ML SYRINGE (J1650) SC SCH (08:46)
[2016-07-27 22:00] VITALS: BP 140/88
[2016-07-28] MEDS: PERCOCET 5MG/325MG TAB PO PRN ×4 (01:02→18:58)
[2016-07-28 02:00] VITALS: BP 144/83
[2016-07-28] MEDS: PIPERACILLIN/TAZOBACTAM SOD 3.375 GM in D5W MINI-BAG PLUS 50 ML IV SCH ×4 (02:59→21:44)
[2016-07-28] MEDS: SODIUM CHLORIDE 0.9% INJ 10 ML SYR IV SCH ×2 (05:25→17:19)
[2016-07-28 06:00] VITALS: BP 150/75
[2016-07-28 07:30] LABS: BLOOD UREA NITROGEN 8 MG/DL (7-18); CALCIUM LEVEL 7.7 MG/DL (8.5-10.1); CARBON DIOXIDE LEVEL 29 MEQ/L (21-32); CHLORIDE LEVEL 102 MEQ/L (98-107); CREATININE FOR GFR 0.65 MG/DL (0.70-1.30); GLUCOSE, FASTING 80 MG/DL (70-105); SODIUM LEVEL 141 MEQ/L (136-145)
[2016-07-28 08:01] LABS: ANION GAP 10 MEQ/L (8-16)
[2016-07-28 08:31] LABS: BASO % 0.2 % (0.0-1.0); EOS # 0.2 K/mm3 (0.0-0.50); EOS % 1.1 % (0.0-3.0); LARGE UNSTAINED CELL # 0.1 K/mm3 (0.0-0.4); LARGE UNSTAINED CELL % 0.8 % (0.0-4.0); LYMPH # 0.9 K/mm3 (1.5-4.5); LYMPH % 5.8 % (24.0-44.0); MEAN CORPUSCULAR HEMOGLOBIN 26.8 pg (27.0-33.0); MEAN CORPUSCULAR HGB CONC 32.2 g/dl (32.0-36.5); MEAN CORPUSCULAR VOLUME 83.2 fl (80.0-96.0); MONO # 0.8 K/mm3 (0.0-0.8); NEUTROPHILS # 11.7 K/mm3 (1.8-7.7); NEUTROPHILS % 86.2 % (36.0-66.0); PLATELET COUNT, AUTOMATED 293 k/mm3 (150-450); RED CELL DISTRIBUTION WIDTH 14.6 % (11.5-14.5); WHITE BLOOD COUNT 13.6 K/mm3 (4.0-10.0)
[2016-07-28] MEDS: POTASSIUM CHLORIDE 10 MEQ SR TABLET PO SCH (09:00)
[2016-07-28] MEDS: FLUCONAZOLE 200 MG in APPROPRIATE DILUENT 1 EA IV SCH (09:10)
[2016-07-28 10:00] VITALS: BP 145/80
[2016-07-28 14:00] VITALS: BP 136/60
[2016-07-28 22:00] VITALS: BP 117/74
[2016-07-29] MEDS: PERCOCET 5MG/325MG TAB PO PRN ×4 (01:23→18:50)
[2016-07-29] MEDS: PIPERACILLIN/TAZOBACTAM SOD 3.375 GM in D5W MINI-BAG PLUS 50 ML IV SCH ×3 (02:57→20:10)
[2016-07-29] MEDS: SODIUM CHLORIDE 0.9% INJ 10 ML SYR IV SCH ×2 (05:39→17:37)
[2016-07-29 06:00] VITALS: BP 131/77
[2016-07-29 06:24] LABS: BASO % 0.2 % (0.0-1.0); EOS # 0.1 K/mm3 (0.0-0.50); EOS % 0.9 % (0.0-3.0); LARGE UNSTAINED CELL # 0.2 K/mm3 (0.0-0.4); LARGE UNSTAINED CELL % 1.8 % (0.0-4.0); LYMPH # 0.9 K/mm3 (1.5-4.5); LYMPH % 7.5 % (24.0-44.0); MEAN CORPUSCULAR HEMOGLOBIN 26.6 pg (27.0-33.0); MEAN CORPUSCULAR HGB CONC 31.9 g/dl (32.0-36.5); MEAN CORPUSCULAR VOLUME 83.2 fl (80.0-96.0); MONO # 0.5 K/mm3 (0.0-0.8); NEUTROPHILS # 10.3 K/mm3 (1.8-7.7); NEUTROPHILS % 85.6 % (36.0-66.0); PLATELET COUNT, AUTOMATED 282 k/mm3 (150-450); RED CELL DISTRIBUTION WIDTH 14.2 % (11.5-14.5)
[2016-07-29] MEDS: POTASSIUM CHLORIDE 10 MEQ SR TABLET PO SCH (09:00)
[2016-07-29] MEDS: FLUCONAZOLE 100 MG TAB PO SCH (09:00)
[2016-07-29 10:00] VITALS: BP 138/72
[2016-07-29] MEDS ORDERED: GASTROGRAFIN SOLUTION 30ML PO ONE (12:30)
[2016-07-29] MEDS ORDERED: GASTROGRAFIN SOLUTION 30ML (Q9963) PO ONE (13:00)
[2016-07-29 14:00] VITALS: BP 141/77
[2016-07-29] MEDS ORDERED: ISOVUE-370 76% 100ML VIAL (Q9967) As Ordered ONE (14:00)
--- NOTE | 2016-07-29 14:41 | REP ---
Clinical: Postoperative fever. Comparison: 03/05/2016. Technique: Axial contrast enhanced images from the lung bases to the pubic symphysis using oral and 100 ml Isovue 370 intravenous contrast material with coronal and sagittal re-formations. Findings: Moderate bibasilar atelectasis and small pleural effusions are appreciated (left greater than right). Ascites and free air is appreciated. The patient is status post left hemicolectomy with colostomy through the left anterior abdominal wall and Esperanza's pouch in the pelvis. Mural thickening of the ascending and transverse colon suggests associated colitis. There is no evidence for bowel obstruction. Pelvis demonstrates normal bladder and age appropriate prostate/seminal vesicles. Scattered sub centimeter lymph nodes throughout the abdomen and mesentery noted. Abdominal aorta and vasculature appears relatively normal. Surrounding musculoskeletal structures demonstrate age-related changes. Impression: 1. Moderate ascites and free air. Evidence for recent left hemicolectomy with colostomy through the left anterior abdominal wall. 2. Mural thickening to the colon cannot exclude acute colitis. 3. Moderate bibasilar atelectasis and small pleural effusions (left greater than right). Signed by Jerry Hernandez MD 07/29/2016 02:33 P
--- NOTE | 2016-07-29 17:29 | REP ---
ULTRASOUND GUIDED PARACENTESIS: The procedure was performed under the direct supervision of Dr. Garland. The risks and benefits of the procedure were explained to the patient and informed consent was obtained. The largest pocket of fluid was localized in the left flank using ultrasound guidance. The skin was prepped and draped in a sterile fashion. 1% Lidocaine was used as a local anesthetic. Using ultrasound guidance a 10-Citizen Of [place] Skater APDL catheter was inserted using trocar technique. 90 mL of dark yellow fluid was withdrawn and sent to the lab. The catheter was then removed. The patient tolerated the procedure well and there were no immediate complications. Reviewed by WENDY Allen 07/30/2016 12:51 PEdited and Signed by Ez Garland MD 07/30/2016 03:28 P
[2016-07-29 22:00] VITALS: BP 111/67
[2016-07-30] MEDS: PIPERACILLIN/TAZOBACTAM SOD 3.375 GM in D5W MINI-BAG PLUS 50 ML IV SCH ×2 (01:47→08:26)
[2016-07-30] MEDS: PERCOCET 5MG/325MG TAB PO PRN ×6 (01:55→22:20)
[2016-07-30] MEDS: SODIUM CHLORIDE 0.9% INJ 10 ML SYR IV SCH (05:31)
[2016-07-30 06:00] VITALS: BP 136/75
[2016-07-30] MEDS: FLUCONAZOLE 100 MG TAB PO SCH (08:24)
[2016-07-30] MEDS: POTASSIUM CHLORIDE 10 MEQ SR TABLET PO SCH (08:24)
[2016-07-30 09:44] LABS: BASO % 0.2 % (0.0-1.0); EOS # 0.1 K/mm3 (0.0-0.50); EOS % 0.7 % (0.0-3.0); LARGE UNSTAINED CELL # 0.2 K/mm3 (0.0-0.4); LARGE UNSTAINED CELL % 1.2 % (0.0-4.0); LYMPH # 0.7 K/mm3 (1.5-4.5); MEAN CORPUSCULAR HEMOGLOBIN 26.6 pg (27.0-33.0); MEAN CORPUSCULAR HGB CONC 32.6 g/dl (32.0-36.5); MEAN CORPUSCULAR VOLUME 81.7 fl (80.0-96.0); MONO # 0.5 K/mm3 (0.0-0.8); MONO % 3.3 % (0.0-5.0); NEUTROPHILS # 12.1 K/mm3 (1.8-7.7); NEUTROPHILS % 89.7 % (36.0-66.0); PLATELET COUNT, AUTOMATED 423 k/mm3 (150-450); RED CELL DISTRIBUTION WIDTH 14.2 % (11.5-14.5); WHITE BLOOD COUNT 13.5 K/mm3 (4.0-10.0)
[2016-07-30 10:00] VITALS: BP 140/72
--- NOTE | 2016-07-30 13:34 | REP ---
Clinical: Shortness of breath. Technique: PA and lateral. Comparison: 07/22/2016. Findings: Linear plate-like atelectasis in the right lower lung zone is appreciated along with bibasilar atelectasis and small pleural effusions. PICC line identified with tip in the SVC. Mediastinum and cardiac silhouette stable. No pneumothorax. Double structures intact. Impression: Moderate linear plate-like atelectasis in the right lower lung zone with small bilateral pleural effusions and basilar atelectasis suggested. Signed by Jerry Hernandez MD 07/30/2016 01:25 P
[2016-07-30] MEDS: ERTAPENEM SODIUM 1 GM in NS MINI-BAG PLUS 50 ML IV SCH (13:46)
[2016-07-30 14:00] VITALS: BP 141/71
[2016-07-30] MEDS: FUROSEMIDE 20 MG TAB PO SCH (14:28)
[2016-07-30] MEDS: ENOXAPARIN 40 MG/0.4 ML SYRINGE (J1650) SC SCH (14:28)
[2016-07-30 22:00] VITALS: BP 133/76
[2016-07-31] MEDS: PERCOCET 5MG/325MG TAB PO PRN ×3 (03:17→22:00)
[2016-07-31 06:00] VITALS: BP 120/73
[2016-07-31 06:56] LABS: BASO % 0.1 % (0.0-1.0); EOS # 0.1 K/mm3 (0.0-0.50); EOS % 1.1 % (0.0-3.0); LARGE UNSTAINED CELL # 0.1 K/mm3 (0.0-0.4); LARGE UNSTAINED CELL % 1.1 % (0.0-4.0); LYMPH # 1.1 K/mm3 (1.5-4.5); LYMPH % 7.7 % (24.0-44.0); MEAN CORPUSCULAR HEMOGLOBIN 26.2 pg (27.0-33.0); MEAN CORPUSCULAR HGB CONC 31.8 g/dl (32.0-36.5); MEAN CORPUSCULAR VOLUME 82.6 fl (80.0-96.0); MONO # 0.6 K/mm3 (0.0-0.8); MONO % 5.1 % (0.0-5.0); NEUTROPHILS # 10.3 K/mm3 (1.8-7.7); NEUTROPHILS % 84.8 % (36.0-66.0); PLATELET COUNT, AUTOMATED 498 k/mm3 (150-450); RED CELL DISTRIBUTION WIDTH 14.7 % (11.5-14.5); WHITE BLOOD COUNT 12.1 K/mm3 (4.0-10.0)
[2016-07-31 07:00] LABS: ANION GAP 8 MEQ/L (8-16); BLOOD UREA NITROGEN 6 MG/DL (7-18); CALCIUM LEVEL 8.1 MG/DL (8.5-10.1); CARBON DIOXIDE LEVEL 29 MEQ/L (21-32); CHLORIDE LEVEL 99 MEQ/L (98-107); CREATININE FOR GFR 0.52 MG/DL (0.70-1.30); GLOMERULAR FILTRATION RATE > 60.0 (>56); GLUCOSE, FASTING 93 MG/DL (70-105); POTASSIUM SERUM 3.4 MEQ/L (3.5-5.1); SODIUM LEVEL 136 MEQ/L (136-145)
[2016-07-31] MEDS: FUROSEMIDE 20 MG TAB PO SCH (08:37)
[2016-07-31] MEDS: POTASSIUM CHLORIDE 10 MEQ SR TABLET PO SCH (08:38)
[2016-07-31] MEDS: FLUCONAZOLE 100 MG TAB PO SCH (08:38)
[2016-07-31] MEDS: ENOXAPARIN 40 MG/0.4 ML SYRINGE (J1650) SC SCH (09:00)
[2016-07-31] MEDS: ERTAPENEM SODIUM 1 GM in NS MINI-BAG PLUS 50 ML IV SCH (13:20)
[2016-07-31 14:00] VITALS: BP 135/69
[2016-07-31] MEDS: ALBUTEROL SULFATE 2.5 MG/0.5 ML INH NEB SOLN NEB SCH ×2 (16:04→23:58)
[2016-07-31 22:00] VITALS: BP 138/65
[2016-08-01] MEDS: PERCOCET 5MG/325MG TAB PO PRN ×4 (02:10→21:47)
[2016-08-01 06:00] VITALS: BP 119/66
[2016-08-01] MEDS: ALBUTEROL SULFATE 2.5 MG/0.5 ML INH NEB SOLN NEB SCH ×3 (07:40→23:44)
[2016-08-01 08:50] VITALS: BP 132/60
[2016-08-01] MEDS: POTASSIUM CHLORIDE 10 MEQ SR TABLET PO SCH (09:20)
[2016-08-01] MEDS: FLUCONAZOLE 100 MG TAB PO SCH (09:21)
[2016-08-01] MEDS: ENOXAPARIN 40 MG/0.4 ML SYRINGE (J1650) SC SCH (09:22)
[2016-08-01] MEDS: FUROSEMIDE 40 MG TAB PO SCH (09:23)
[2016-08-01 10:22] LABS: BASO % 0.2 % (0.0-1.0); EOS # 0.1 K/mm3 (0.0-0.50); EOS % 0.7 % (0.0-3.0); LARGE UNSTAINED CELL # 0.1 K/mm3 (0.0-0.4); LARGE UNSTAINED CELL % 0.9 % (0.0-4.0); LYMPH % 6.9 % (24.0-44.0); MEAN CORPUSCULAR HEMOGLOBIN 26.3 pg (27.0-33.0); MEAN CORPUSCULAR VOLUME 84.7 fl (80.0-96.0); MONO # 0.7 K/mm3 (0.0-0.8); MONO % 5.2 % (0.0-5.0); NEUTROPHILS % 86.1 % (36.0-66.0); PLATELET COUNT, AUTOMATED 666 k/mm3 (150-450); RED CELL DISTRIBUTION WIDTH 14.4 % (11.5-14.5); WHITE BLOOD COUNT 12.7 K/mm3 (4.0-10.0)
[2016-08-01 10:44] LABS: ANION GAP 8 MEQ/L (8-16); BLOOD UREA NITROGEN 9 MG/DL (7-18); CALCIUM LEVEL 7.8 MG/DL (8.5-10.1); CARBON DIOXIDE LEVEL 30 MEQ/L (21-32); CHLORIDE LEVEL 99 MEQ/L (98-107); CREATININE FOR GFR 0.68 MG/DL (0.70-1.30); GLOMERULAR FILTRATION RATE > 60.0 (>56); GLUCOSE, FASTING 157 MG/DL (70-105); SODIUM LEVEL 137 MEQ/L (136-145)
[2016-08-01] MEDS: ERTAPENEM SODIUM 1 GM in NS MINI-BAG PLUS 50 ML IV SCH (13:20)
[2016-08-01 13:51] VITALS: BP 130/70
[2016-08-01 14:00] VITALS: BP 139/67
[2016-08-01] MEDS ORDERED: PERCOCET 5MG/325MG TAB PO PRN (14:30)
[2016-08-01] MEDS: LevoFLOXacin 750 MG TABLET PO SCH (18:12)
[2016-08-01 22:00] VITALS: BP 137/71
[2016-08-02] MEDS: PERCOCET 5MG/325MG TAB PO PRN ×2 (02:39→11:07)
[2016-08-02 06:00] VITALS: BP 146/77
[2016-08-02 06:57] LABS: BASO % 0.2 % (0.0-1.0); EOS # 0.2 K/mm3 (0.0-0.50); EOS % 1.9 % (0.0-3.0); LARGE UNSTAINED CELL # 0.2 K/mm3 (0.0-0.4); LARGE UNSTAINED CELL % 1.3 % (0.0-4.0); LYMPH # 1.2 K/mm3 (1.5-4.5); LYMPH % 9.6 % (24.0-44.0); MEAN CORPUSCULAR HEMOGLOBIN 26.2 pg (27.0-33.0); MEAN CORPUSCULAR HGB CONC 30.8 g/dl (32.0-36.5); MONO # 0.7 K/mm3 (0.0-0.8); MONO % 5.9 % (0.0-5.0); NEUTROPHILS # 9.2 K/mm3 (1.8-7.7); PLATELET COUNT, AUTOMATED 747 k/mm3 (150-450); RED CELL DISTRIBUTION WIDTH 14.4 % (11.5-14.5); WHITE BLOOD COUNT 11.3 K/mm3 (4.0-10.0)
[2016-08-02 07:05] LABS: ANION GAP 7 MEQ/L (8-16); BLOOD UREA NITROGEN 8 MG/DL (7-18); CARBON DIOXIDE LEVEL 29 MEQ/L (21-32); CHLORIDE LEVEL 100 MEQ/L (98-107); CREATININE FOR GFR 0.59 MG/DL (0.70-1.30); GLOMERULAR FILTRATION RATE > 60.0 (>56); GLUCOSE, FASTING 125 MG/DL (70-105); POTASSIUM SERUM 3.7 MEQ/L (3.5-5.1); SODIUM LEVEL 136 MEQ/L (136-145)
[2016-08-02] MEDS: ALBUTEROL SULFATE 2.5 MG/0.5 ML INH NEB SOLN NEB SCH ×2 (07:20→15:28)
[2016-08-02] MEDS ORDERED: ISOVUE-370 76% 100ML VIAL (Q9967) As Ordered ONE (07:58)
--- NOTE | 2016-08-02 09:09 | REP ---
CT abdomen pelvis with IV contrast, without bowel contrast: Comparisons 07/29/2016. The patient is status post left hemicolectomy with a distal transverse colon colostomy and Esperanza pouch. This is unchanged. The postsurgical pneumoperitoneum identified on the comparison study is again present. This is slightly decreased in volume. Diffuse abdominal ascites is again noted, unchanged. On the prior study there was diffuse wall thickening of the remaining colon compatible with colitis. This is unchanged. Additionally there appears to be diffuse wall thickening of the small bowel compatible with enteritis, not definitely present previously. There is no evidence of bowel distension or obstruction. The visualized lower lung davis demonstrate bilateral pleural effusions, small to moderate on the left is small on the right. There is atelectasis in the lower lobes bilaterally. The pleural effusion on the left has increased in size from 07/29/2016. The hepatic parenchyma, gallbladder, pancreas and spleen are unchanged unremarkable. The adrenals, kidneys and abdominal aorta are unchanged and unremarkable. A small left renal cyst is incidentally noted. Pelvis: There is pelvic ascites. The bladder is unremarkable. There is no pelvic adenopathy. The appendix is unremarkable. Impression: Postsurgical changes as described. Diffuse abdominal ascites. No bowel obstruction. There is wall thickening of the remaining colon and wall thickening of the small bowel compatible with colitis and enteritis. There are bilateral pleural effusions. The left pleural effusion is larger and has increased size from 2012, 2016. The right pleural effusion is smaller and is unchanged size. There is abdominal ascites, unchanged. Postsurgical pneumoperitoneum has decreased in volume. No adenopathy. Signed by Ez Villa MD 08/02/2016 09:01 A
[2016-08-02] MEDS: POTASSIUM CHLORIDE 10 MEQ SR TABLET PO SCH (11:07)
[2016-08-02] MEDS: FUROSEMIDE 40 MG TAB PO SCH (11:07)
[2016-08-02] MEDS: ENOXAPARIN 40 MG/0.4 ML SYRINGE (J1650) SC SCH (11:08)
[2016-08-02] MEDS: ERTAPENEM SODIUM 1 GM in NS MINI-BAG PLUS 50 ML IV SCH (13:36)
[2016-08-02 14:00] VITALS: BP 133/73
[2016-08-02] MEDS: LevoFLOXacin 750 MG TABLET PO SCH (18:03)
[2016-08-02] MEDS: ACETAMINOPHEN TAB 650MG DOSE (2X325MG) PO PRN (20:50)
[2016-08-02 22:00] VITALS: BP 147/75
[2016-08-03 02:00] VITALS: BP 143/89
[2016-08-03 06:00] VITALS: BP 129/69
[2016-08-03 06:54] LABS: BASO % 0.2 % (0.0-1.0); EOS # 0.2 K/mm3 (0.0-0.50); EOS % 1.3 % (0.0-3.0); LARGE UNSTAINED CELL # 0.2 K/mm3 (0.0-0.4); LARGE UNSTAINED CELL % 1.4 % (0.0-4.0); LYMPH # 1.1 K/mm3 (1.5-4.5); LYMPH % 7.8 % (24.0-44.0); MEAN CORPUSCULAR HEMOGLOBIN 25.8 pg (27.0-33.0); MEAN CORPUSCULAR VOLUME 83.3 fl (80.0-96.0); MONO # 0.8 K/mm3 (0.0-0.8); MONO % 6.4 % (0.0-5.0); NEUTROPHILS # 9.9 K/mm3 (1.8-7.7); NEUTROPHILS % 82.8 % (36.0-66.0); RED CELL DISTRIBUTION WIDTH 14.2 % (11.5-14.5); WHITE BLOOD COUNT 11.9 K/mm3 (4.0-10.0)
[2016-08-03 06:57] LABS: ANION GAP 8 MEQ/L (8-16); BLOOD UREA NITROGEN 7 MG/DL (7-18); CALCIUM LEVEL 8.4 MG/DL (8.5-10.1); CARBON DIOXIDE LEVEL 29 MEQ/L (21-32); CHLORIDE LEVEL 102 MEQ/L (98-107); CREATININE FOR GFR 0.62 MG/DL (0.70-1.30); GLOMERULAR FILTRATION RATE > 60.0 (>56); GLUCOSE, FASTING 124 MG/DL (70-105); POTASSIUM SERUM 4.1 MEQ/L (3.5-5.1); SODIUM LEVEL 139 MEQ/L (136-145)
[2016-08-03 07:08] LABS: PLATELET COUNT, AUTOMATED 848 k/mm3 (150-450)
[2016-08-03] MEDS: ALBUTEROL SULFATE 2.5 MG/0.5 ML INH NEB SOLN NEB SCH ×4 (07:21→23:54)
[2016-08-03] MEDS: ENOXAPARIN 40 MG/0.4 ML SYRINGE (J1650) SC SCH (09:00)
[2016-08-03] MEDS: FUROSEMIDE 40 MG TAB PO SCH (09:05)
[2016-08-03] MEDS: POTASSIUM CHLORIDE 10 MEQ SR TABLET PO SCH (09:05)
[2016-08-03] MEDS: ACETAMINOPHEN TAB 650MG DOSE (2X325MG) PO PRN ×2 (09:06→21:17)
[2016-08-03] MEDS: ERTAPENEM SODIUM 1 GM in NS MINI-BAG PLUS 50 ML IV SCH (12:53)
[2016-08-03 14:00] VITALS: BP 119/66
[2016-08-03] MEDS: LevoFLOXacin 750 MG TABLET PO SCH (18:33)
[2016-08-03 22:00] VITALS: BP 142/78
[2016-08-04 02:00] VITALS: BP 131/65
[2016-08-04 06:00] VITALS: BP 140/76
[2016-08-04 06:52] LABS: BASO % 0.3 % (0.0-1.0); EOS # 0.1 K/mm3 (0.0-0.50); EOS % 1.7 % (0.0-3.0); LARGE UNSTAINED CELL # 0.1 K/mm3 (0.0-0.4); LARGE UNSTAINED CELL % 1.3 % (0.0-4.0); LYMPH # 0.8 K/mm3 (1.5-4.5); MEAN CORPUSCULAR HEMOGLOBIN 26.3 pg (27.0-33.0); MEAN CORPUSCULAR HGB CONC 31.8 g/dl (32.0-36.5); MEAN CORPUSCULAR VOLUME 82.6 fl (80.0-96.0); MONO # 0.6 K/mm3 (0.0-0.8); MONO % 7.3 % (0.0-5.0); NEUTROPHILS # 6.3 K/mm3 (1.8-7.7); NEUTROPHILS % 80.4 % (36.0-66.0); PLATELET COUNT, AUTOMATED 844 k/mm3 (150-450); RED CELL DISTRIBUTION WIDTH 14.1 % (11.5-14.5); WHITE BLOOD COUNT 7.8 K/mm3 (4.0-10.0)
[2016-08-04 07:05] LABS: ANION GAP 10 MEQ/L (8-16); BLOOD UREA NITROGEN 7 MG/DL (7-18); CALCIUM LEVEL 8.4 MG/DL (8.5-10.1); CARBON DIOXIDE LEVEL 25 MEQ/L (21-32); CHLORIDE LEVEL 103 MEQ/L (98-107); CREATININE FOR GFR 0.61 MG/DL (0.70-1.30); GLOMERULAR FILTRATION RATE > 60.0 (>56); GLUCOSE, FASTING 107 MG/DL (70-105); SODIUM LEVEL 138 MEQ/L (136-145)
[2016-08-04] MEDS: ALBUTEROL SULFATE 2.5 MG/0.5 ML INH NEB SOLN NEB SCH (07:51)
[2016-08-04] MEDS: POTASSIUM CHLORIDE 10 MEQ SR TABLET PO SCH (08:53)
[2016-08-04] MEDS: ENOXAPARIN 40 MG/0.4 ML SYRINGE (J1650) SC SCH (08:53)
[2016-08-04] MEDS: FUROSEMIDE 40 MG TAB PO SCH (08:53)
[2016-08-04 10:00] VITALS: BP 117/69
[2016-08-04] MEDS ORDERED: PERCOCET PO (10:51)
[2016-08-04] MEDS ORDERED: LEVA750T PO (10:54)
--- NOTE | 2016-09-03 20:38 | DSES ---
DATE OF ADMISSION: 07/19/2016 DATE OF DISCHARGE: 08/04/2016 ADMITTING DIAGNOSIS: Sigmoid colon obstruction. HISTORY OF PRESENT ILLNESS: The patient is a 56-year-old man who had recently presented to the office with a long history of symptoms. He described intermittent episodes of abdominal pain associated with distension and bloating and vomiting and diarrhea. Initially these were happening every month or two, but they had increased in frequency more recently. His diarrhea and vomiting usually lasted for about a day, during which he was incapacitated. He reports that on these occasions, he would have repeated emesis with what he described as feculent material. He reports that he has lost as much as 40-50 pounds over the last months. My office records show that in 09/2014, he weight 215 pounds and on the day of presentation, which was 07/12/2016, he weighed 173 pounds, a difference of 42 pounds. He had a colonoscopy in 12/2014 that showed a narrowing in the sigmoid colon, but without any evidence of malignancy. He has been seen several times by physicians over the last year and treated with antibiotics for his episodes, but without lasting improvement. He does have a history of a prior episode of diverticulitis leading to an abscess that required drainage in 09/2014. On 02/02/2016, the patient had a CT of the abdomen and pelvis which revealed a significant stenosis in the upper sigmoid with dilation of the entire proximal colon. A barium enema performed on 07/10/2016 showed a large 5 cm napkin ring stricture of the sigmoid colon. There was obstruction to retrograde flow of the barium noted. He was referred for my evaluation. He notes a lot of intestinal noise. He has not noticed any rectal bleeding. In the office I reviewed the imaging studies and the patient's history. His endoscopy from 12/2014 had shown a narrowing, which was felt to be consistent with a mild stenosis from diverticulitis. He now seems to have progressed to a more severe narrowing, which is quite symptomatic. He is admitted now to undergo a laparoscopic sigmoid colectomy. He has performed a several-day bowel prep with clear liquids and some MiraLax as well as antibiotics for an antibiotic bowel prep as well. HOSPITAL COURSE: He was admitted on the morning of 07/19/2016. He was taken to the operating room where he underwent a laparoscopic sigmoid colectomy with a stapled colorectal anastomosis. The patient tolerated the procedure well. It was noted that there was some chronic dilation and thickening of the bowel wall of the bowel above the level of the obstruction. It was impossible to tell during the dissection of the colon whether this represented a malignant or benign process, but once the colon was removed, the specimen was opened and the findings were all consistent with a severe narrowing from inflammatory changes of diverticulosis and diverticulitis. The patient did very well for the first two days postoperatively. He tolerated liquids well and was advanced to a regular diet. He had little discomfort. It was anticipated that he would likely be discharged on 07/22/2016; however, on the evening of 07/21/2016, the patient had a fever noted. On the morning of 07/22/2016, it was noted that he was tachycardiac with abdominal distension and significantly increased abdominal pain. He was felt to have suffered an anastomotic leak. He was started on Zosyn for antibiotic coverage. His abdominal x-ray showed a large volume of free air and his white blood cell count was low, but with a marked left shift. He was taken urgently to the operating room for exploratory laparotomy. At surgery, he was found to have diffuse peritonitis. He underwent laparotomy with debridement of peritonitis, takedown of his colorectal anastomosis, oversewing of the rectal stump and an end descending colostomy. Inspection showed a posterior leak at the anastomosis. The patient tolerated the procedure well. He had a nasogastric tube and Persaud catheter at the conclusion of the procedure. A patient controlled analgesic ([employer]) device was used for pain control. He had some mild hypotension first, though his electrolytes were fine on postoperative day #1. His protein and albumin were low. He was placed back on deep venous thrombosis (DVT) prophylaxis. A peripherally inserted central catheter (PICC) line was placed to start total parenteral nutrition (TPN). By 07/24/2016, he had ostomy output and his nasogastric tube was discontinued. TPN was begun and he had some hypokalemia, which was replaced orally. Zosyn and Diflucan were continued for antibiotic management. His diet was advanced. His [employer] MARKER was stopped on 07/25/2016 and he was moved to oral medications. The patient was placed under the care of Dr. Ferrera, as I went on vacation starting 07/25/2016. The patient generally made good progress. He was begun on ostomy teaching. He was an attentive learner and readily learned the techniques for managing his ostomy. His white blood cell count was persistently mildly elevated. A CT scan was obtained for low grade temperatures, with a mild persistent elevation of his white count. He was placed back on antibiotics using Invanz after the CT scan showed some ascites. A definite abscess was not seen. He underwent an aspiration of some abdominal fluid, which revealed no growth. He made continued progress. On 08/03/2016 he was noted to be afebrile with good urine output and a well functioning ostomy. His white count was still 11.9. On 08/04/2016, his white count was reduced to normal levels. He was doing well and he was discharged home in good condition. 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 OTHER DIAGNOSIS: Includes obstructive sleep apnea. PROCEDURES PERFORMED: 1. Laparoscopic sigmoid colectomy with stapled colorectal anastomosis. 2. Laparotomy with debridement of peritonitis, takedown of colorectal anastomosis, oversewing of rectal stump and end-descending colostomy. OTHER PROCEDURES INCLUDE: An ultrasound-guided fluid aspiration of peritoneal fluid. DISPOSITION: The patient was discharged on . He was discharged with prescriptions for levofloxacin 750 mg by mouth daily, #10 and Percocet 5/325 tablets one every 4 hours as needed for pain, #30. He was to continue his Nexium, calcium and vitamin D, and MiraLax as needed. He was to take a diet as tolerated. He was to avoid any strenuous physical activity. He was authorized to shower as desired. He was to follow up in my office in approximately two weeks.
== END 2016-08-04 13:15 | disposition home or self-care (01) | DRG 221 ==
LOC: M OR 07:35 → M MS5PR 16:05
PROVIDERS: ADMIT Surgery; ATTEND Surgery
PROC: 0D1N0Z4 Bypass Sigmoid Colon to Cutaneous, Open Approach (ICD-10-PCS; 2016-07-19)
PROC: 0DBN4ZZ Excision of Sigmoid Colon, Percutaneous Endoscopic Approach (ICD-10-PCS; principal; 2016-07-19 09:15)
PROC: 0W9G3ZX Drainage of Peritoneal Cavity, Percutaneous Approach, Diagnostic (ICD-10-PCS; 2016-07-22)
PROC: 0D1M0Z4 Bypass Descending Colon to Cutaneous, Open Approach (ICD-10-PCS; 2016-07-22)
PROC: 0DQP0ZZ Repair Rectum, Open Approach (ICD-10-PCS; 2016-07-22)
PROC: 02HV33Z Insertion of Infusion Device into Superior Vena Cava, Percutaneous Approach (ICD-10-PCS; 2016-07-23)
DX: K56.60 Unspecified intestinal obstruction (principal); K57.32 Diverticulitis of large intestine without perforation or abscess without bleeding; K91.89 Other postprocedural complications and disorders of digestive system

== ENCOUNTER → 2016-10-22 | Outpatient (CLI) | payer BC, OTHER ==
[~2016-10-22] VITALS: Ht 175.3 cm; Wt 82.1 kg
[~2016-10-22] MED LIST changes: -BUPIVACAINE HCL 0.25% 30 ML VIAL As Ordered ONE; +LEVA750T PO; +LIDOCAINE 1% MDV 20ML VIAL As Ordered ONE; +LR 1,000 ML IV SCH; +PERCOCET PO; +PROPOFOL 200 MG/20 ML VIAL As Ordered ONE
--- NOTE | 2016-10-22 15:19 | ROOR ---
Patient Name: Brian Diaz Procedure Date: 10/22/2016 2:45 PM Date of : 1960 Age: 56 Room: [facility] Gender: Male Note Status: Finalized Procedure: Colonoscopy Indications: Preoperative assessment Providers: Evaristo Das MD Referring MD: MIKE JORGENSEN JR, MD Requesting Provider: Medicines: Monitored Anesthesia Care Complications: No immediate complications. Procedure: Pre-Anesthesia Assessment: - Prior to the procedure, a History and Physical was performed, and patient medications and allergies were reviewed. The patient is competent. The risks and benefits of the procedure and the sedation options and risks were discussed with the patient. All questions were answered and informed consent was obtained. Patient identification and proposed procedure were verified by the physician, the nurse and the maintenance superintendent in the procedure room. Mental Status Examination: alert and oriented. Airway Examination: normal oropharyngeal airway and neck mobility. CV Examination: regular rate and rhythm. Prophylactic Antibiotics: The patient does not require prophylactic antibiotics. Prior Anticoagulants: The patient has taken no previous anticoagulant or antiplatelet agents. ASA Grade Assessment: III - A patient with severe systemic disease. After reviewing the risks and benefits, the patient was deemed in satisfactory condition to undergo the procedure. The anesthesia plan was to use monitored anesthesia care (MAC). Immediately prior to administration of medications, the patient was re-assessed for adequacy to receive sedatives. The heart rate, respiratory rate, oxygen saturations, blood pressure, adequacy of pulmonary ventilation, and response to care were monitored throughout the procedure. The physical status of the patient was re-assessed after the procedure. The Colonoscope was introduced through the descending colostomy and advanced to the cecum, identified by appendiceal orifice and ileocecal valve. The colonoscopy was performed without difficulty. The patient tolerated the procedure well. The quality of the bowel preparation was good. The Colonoscope was introduced through the anus and advanced to the rectum for evaluation. This was the intended extent. Findings: A few medium-mouthed diverticula were found in the descending colon. The rectum appeared normal. The rectal stump was 17-18 cm in length. Impression: - Diverticulosis in the descending colon. - The rectum is normal. - No specimens collected. Recommendation: - Discharge patient to home. - Resume previous diet. - Continue present medications. - Return to endoscopist in 10 days. Evaristo Das MD 10/22/2016 3:19:12 PM Number of Addenda: 0 Note Initiated On: 10/22/2016 2:45 PM Estimated Blood Loss: Estimated blood loss: none.
[2016-10-22 15:45] VITALS: BP 125/73
== END | disposition home or self-care (01) ==
LOC: M OPP 13:15
PROVIDERS: ATTEND Surgery
DX: Z09 Encounter for follow-up examination after completed treatment for conditions other than malignant neoplasm (principal); K57.30 Diverticulosis of large intestine without perforation or abscess without bleeding; Z87.19 Personal history of other diseases of the digestive system; G47.30 Sleep apnea, unspecified; R06.83 Snoring; M51.9 Unspecified thoracic, thoracolumbar and lumbosacral intervertebral disc disorder; Z80.0 Family history of malignant neoplasm of digestive organs; Z80.1 Family history of malignant neoplasm of trachea, bronchus and lung

== ENCOUNTER 2016-12-10 07:15 | Inpatient (IN) | payer BC, OTHER ==
--- NOTE | 2016-12-09 23:49 | HPE ---
DATE OF SCHEDULED ADMISSION: 12/10/2016 ADMITTING DIAGNOSIS: Colostomy for elective closure. HISTORY OF THE PRESENT ILLNESS: The patient is a very pleasant 56-year-old man who was first seen in June of 2016 with a long history consistent with a partial colonic obstruction and with a barium enema showing a stricture in the sigmoid colon. He underwent a laparoscopic sigmoid colectomy on July 19. His pathology revealed changes consistent with diverticulosis and diverticulitis. He developed an anastomotic leak and underwent exploratory laparotomy on July with debridement of peritonitis and a takedown of his anastomosis with oversewing of his rectal stump and an end colostomy. The patient healed well. He has done an excellent job caring for his stoma. He underwent a colonoscopy on October 22, 2016 in anticipation of colostomy closure. This showed a few diverticuli identified in the descending colon. The rectum appeared normal and the rectal stump was 17-18 cm in length. The patient was last seen on November 25, 2016. He was counseled for closure of his colostomy. The plan is to proceed laparoscopically as much as possible and convert to open if necessary. He was instructed to perform an antibiotic and mechanical bowel preparation using neomycin and Flagyl and SUPREP the day before surgery. MEDICATIONS: The patient's current medications include calcium and vitamin D tablet daily and vitamin C every other day. He has had prescriptions for neomycin 1 gram by mouth every 8 hours for three doses before surgery and Flagyl 500 mg by mouth every 8 hours for three doses before surgery. ALLERGIES: The patient has no known drug allergies. MEDICAL HISTORY: Significant for a history of obstructive sleep apnea. He has been outfitted with a continuous positive airway pressure (CPAP) but does not always wear it as he has trouble sleeping with it. He has a history of diverticulitis with a previous diverticular abscess requiring percutaneous drainage. SURGICAL HISTORY: Significant for a colonoscopic polypectomy back in October of 2013. He had a colonoscopy in December 2014. He had a laparoscopic sigmoid colectomy on July 19, 2016 and subsequently had a laparotomy for an anastomotic leak leading to an end colostomy and oversewing of his rectal stump. REVIEW OF SYSTEMS: Shows that the patient denies any chronic severe headaches, seizure or stroke. He has no chest pain or palpitations. He has no lung or upper respiratory symptoms. He denies any dysuria or hematuria. His colostomy has been functioning well without any bleeding. He denies any bone or joint issues. FAMILY HISTORY: The patient has been diagnosed with lung cancer but also had colon cancer. The patient's mother is from a myocardial infarction. SOCIAL HISTORY: The patient is a former smoker. He denies any alcohol use. He is currently working. PHYSICAL EXAMINATION: The patient's most recent office note reveals a height of 69 inches with a weight of 90 kg, yielding a body mass index (BMI) of approximately 29. He is alert, oriented and cooperative. Sclerae are anicteric. Mucous membranes are moist. The neck is supple without mass or bruit. Heart: Exam shows a regular rate and rhythm. The lungs are clear to auscultation bilaterally. The abdomen is flat. He has a somewhat irregular low midline scar. There is a colostomy in the left midabdomen and appears well matured. He does appear to have some degree of peristomal herniation. Skin is warm and dry with no evidence of rash or worrisome skin lesions. IMPRESSION: 1. End sigmoid colostomy for elective closure. 2. Obstructive sleep apnea. PLAN: The patient is being admitted on the morning of December 10, 2016 to undergo a laparoscopic colostomy closure. He was counseled for a laparoscopic approach, but there is also a chance that he will have such extensive intra-abdominal scarring that an open approach may prove more expeditious. He has performed a mechanical and antibiotic bowel preparation at home utilizing SUPREP and neomycin and Flagyl. He will receive a dose of Invanz preoperatively as well as a dose of Entereg preoperatively. A Persaud catheter will be utilized intraoperatively. Thromboembolism deterrents (TEDs) and sequentials will be utilized for deep vein thrombosis (DVT) prophylaxis initially. The patient was counseled regarding the surgery. He was counseled regarding the risks, which include but are not limited to bleeding, infection, scarring, adverse drug reaction, need for further surgery, injury of internal organ, anastomotic leak, and hernia. The patient had an opportunity to ask questions. He desires to proceed with the surgery. RACHELLE
[~2016-12-10] VITALS: Ht 175.3 cm; Wt 89.8 kg
[~2016-12-10 07:15] MED LIST changes: +CALC1TAB74 PO; -CALC600T53 PO; +CALCTAB68 PO; -LEVA750T PO; +LEVA750T7 PO; -LIDOCAINE 1% MDV 20ML VIAL As Ordered ONE; -LR 1,000 ML IV SCH; +METR1TAB66 PO; -METR500T10 PO; -PROPOFOL 200 MG/20 ML VIAL As Ordered ONE; +VITA500T PO
[2016-12-10] MEDS ORDERED: LR 1,000 ML IV SCH ×2 (07:30→15:15)
[2016-12-10] MEDS ORDERED: ALVIMOPAN 12 MG CAPSULE (ENTEREG) PO ONE (07:30)
[2016-12-10] MEDS ORDERED: ERTAPENEM SODIUM 1 GM in NS MINI-BAG PLUS 50 ML IV ONE (07:30)
[2016-12-10] MEDS ORDERED: LR 1,000 ML IV ONE (07:30)
[2016-12-10] MEDS ORDERED: LIDOCAINE 2% INJ 100 MG/5 ML SDV (FOR ANES.) As Ordered ONE (08:17)
[2016-12-10] MEDS ORDERED: ROCURONIUM BROMIDE 50 MG/5 ML VIAL/SYRINGE As Ordered ONE ×2 (08:17→10:42)
[2016-12-10] MEDS ORDERED: MIDAZOLAM INJ 2 MG/2 ML VIAL (J2250) As Ordered ONE (08:17)
[2016-12-10] MEDS ORDERED: fentaNYL 250 MCG/5 ML INJECTION (J3010) As Ordered ONE (08:17)
[2016-12-10] MEDS ORDERED: dexameTHASONE 4 MG/ML 1ML VIAL (J1100) As Ordered ONE (08:17)
[2016-12-10] MEDS ORDERED: PROPOFOL 200 MG/20 ML VIAL As Ordered ONE ×2 (08:17→10:42)
[2016-12-10] MEDS ORDERED: ONDANSETRON 4MG/2ML VIAL (J2405) As Ordered ONE (08:17)
[2016-12-10] MEDS ORDERED: BUPIVACAINE HCL 0.25% 30 ML VIAL As Ordered ONE (08:31)
[2016-12-10] MEDS ORDERED: ePHEDrine SULFATE 25 MG/5 ML(5MG/ML) SYRINGE As Ordered ONE (10:01)
[2016-12-10] MEDS ORDERED: METOCLOPRAMIDE INJ 10MG/2ML VIAL (J2765) As Ordered ONE (10:55)
[2016-12-10] MEDS ORDERED: GLYCOPYRROLATE INJ 0.2 MG/ML 2 ML VIAL As Ordered ONE (11:07)
[2016-12-10] MEDS ORDERED: NEOSTIGMINE 1MG/ML 5 ML SYRINGE (J2710) As Ordered ONE (11:07)
[2016-12-10] MEDS ORDERED: HYDROmorphone HCL 2 MG/ML 1ML VIAL (J1170) As Ordered ONE (11:09)
[2016-12-10] MEDS ORDERED: ESMOLOL INJ 100MG/10ML VIAL As Ordered ONE (13:56)
[2016-12-10] MEDS ORDERED: KETOROLAC 60 MG/2 ML VIAL (J1885) As Ordered ONE (14:52)
[2016-12-10] MEDS ORDERED: MORPHINE 2 MG/ML 1ML SYRINGE IV PRN ×2 (15:00→15:15)
[2016-12-10] MEDS ORDERED: ACETAMINOPHEN TAB 650MG DOSE (2X325MG) PO PRN (15:00)
[2016-12-10] MEDS ORDERED: PERCOCET 5MG/325MG TAB PO PRN ×2 (15:00→15:15)
[2016-12-10] MEDS ORDERED: ONDANSETRON 4MG/2ML VIAL (J2405) IV PRN ×2 (15:00→15:15)
[2016-12-10] MEDS ORDERED: MORPHINE 4 MG/ML 1ML SYRINGE IV PRN (15:00)
[2016-12-10] MEDS ORDERED: METOCLOPRAMIDE INJ 10MG/2ML VIAL (J2765) IV PRN (15:00)
[2016-12-10] MEDS ORDERED: fentaNYL 100 MCG/2 ML INJECTION (J3010) IV PRN (15:15)
[2016-12-10 15:50] VITALS: BP 128/77
[2016-12-10 16:20] VITALS: BP 121/66
[2016-12-10] MEDS: LR 1,000 ML IV SCH ×2 (16:25→23:06)
[2016-12-10 16:50] VITALS: BP 120/63
[2016-12-10 17:50] VITALS: BP 116/64
[2016-12-10 18:50] VITALS: BP 108/69
[2016-12-10 20:00] VITALS: BP 114/67
[2016-12-10] MEDS: KETOROLAC 30 MG/ML VIAL (J1885) IV SCH (21:32)
[2016-12-10] MEDS: ALVIMOPAN 12 MG CAPSULE (ENTEREG) PO SCH (21:32)
[2016-12-10] MEDS: ENOXAPARIN 40 MG/0.4 ML SYRINGE (J1650) SC SCH (23:05)
[2016-12-11] VITALS: BP 113/54
[2016-12-11] MEDS: KETOROLAC 30 MG/ML VIAL (J1885) IV SCH ×4 (03:48→21:08)
[2016-12-11 04:00] VITALS: BP 118/64
[2016-12-11 07:09] LABS: BASO % 0.2 % (0.0-1.0); EOS % 0.1 % (0.0-3.0); LARGE UNSTAINED CELL # 0.1 K/mm3 (0.0-0.4); LARGE UNSTAINED CELL % 1.2 % (0.0-4.0); LYMPH # 1.1 K/mm3 (1.5-4.5); LYMPH % 8.6 % (24.0-44.0); MEAN CORPUSCULAR HEMOGLOBIN 29.3 pg (27.0-33.0); MEAN CORPUSCULAR VOLUME 86.1 fl (80.0-96.0); MONO # 0.7 K/mm3 (0.0-0.8); MONO % 6.4 % (0.0-5.0); NEUTROPHILS # 9.7 K/mm3 (1.8-7.7); NEUTROPHILS % 83.5 % (36.0-66.0); PLATELET COUNT, AUTOMATED 152 k/mm3 (150-450); RED CELL DISTRIBUTION WIDTH 14.2 % (11.5-14.5); WHITE BLOOD COUNT 11.7 K/mm3 (4.0-10.0)
[2016-12-11 07:23] LABS: ALBUMIN 3.1 GM/DL (3.2-5.2); ALBUMIN/GLOBULIN RATIO 0.86 (1.00-1.93); ALKALINE PHOSPHATASE 48 U/L (45-117); ALT/SGPT 18 U/L (12-78); ANION GAP 7 MEQ/L (8-16); AST/SGOT 17 U/L (15-37); BILIRUBIN,TOTAL 1.2 MG/DL (0.2-1.0); BLOOD UREA NITROGEN 17 MG/DL (7-18); CALCIUM LEVEL 7.6 MG/DL (8.5-10.1); CARBON DIOXIDE LEVEL 27 MEQ/L (21-32); CHLORIDE LEVEL 104 MEQ/L (98-107); CREATININE FOR GFR 0.81 MG/DL (0.70-1.30); GLOMERULAR FILTRATION RATE > 60.0 (>56); GLUCOSE, FASTING 113 MG/DL (70-105); SODIUM LEVEL 138 MEQ/L (136-145); TOTAL PROTEIN 6.7 GM/DL (6.4-8.2)
[2016-12-11 08:00] VITALS: BP 126/72
[2016-12-11] MEDS: ALVIMOPAN 12 MG CAPSULE (ENTEREG) PO SCH ×2 (08:52→21:08)
[2016-12-11 12:00] VITALS: BP 144/85
[2016-12-11 16:00] VITALS: BP 137/82
[2016-12-11 20:00] VITALS: BP 138/84
[2016-12-11] MEDS: ENOXAPARIN 40 MG/0.4 ML SYRINGE (J1650) SC SCH (23:49)
[2016-12-12] VITALS: BP 145/84
[2016-12-12] MEDS: KETOROLAC 30 MG/ML VIAL (J1885) IV SCH ×2 (03:53→09:35)
[2016-12-12 04:00] VITALS: BP 130/84
[2016-12-12 08:00] VITALS: BP 160/88
[2016-12-12] MEDS: ALVIMOPAN 12 MG CAPSULE (ENTEREG) PO SCH ×2 (09:01→21:43)
[2016-12-12] MEDS: IBUPROFEN 600 MG TAB PO PRN (11:02)
[2016-12-12 12:00] VITALS: BP 167/87
[2016-12-12 16:00] VITALS: BP 138/70
[2016-12-12 20:25] VITALS: BP 150/83
[2016-12-12] MEDS: ENOXAPARIN 40 MG/0.4 ML SYRINGE (J1650) SC SCH (22:52)
[2016-12-12] MEDS: PERCOCET 5MG/325MG TAB PO PRN (22:53)
[2016-12-13 00:37] VITALS: BP 136/84
[2016-12-13 04:25] VITALS: BP 132/98
[2016-12-13 06:39] LABS: BASO % 0.6 % (0.0-1.0); EOS # 0.3 K/mm3 (0.0-0.50); LARGE UNSTAINED CELL # 0.1 K/mm3 (0.0-0.4); LARGE UNSTAINED CELL % 1.6 % (0.0-4.0); LYMPH # 1.5 K/mm3 (1.5-4.5); MEAN CORPUSCULAR HEMOGLOBIN 29.5 pg (27.0-33.0); MEAN CORPUSCULAR HGB CONC 34.6 g/dl (32.0-36.5); MEAN CORPUSCULAR VOLUME 85.4 fl (80.0-96.0); MONO # 0.5 K/mm3 (0.0-0.8); MONO % 7.8 % (0.0-5.0); NEUTROPHILS # 4.1 K/mm3 (1.8-7.7); PLATELET COUNT, AUTOMATED 159 k/mm3 (150-450); RED CELL DISTRIBUTION WIDTH 13.9 % (11.5-14.5); WHITE BLOOD COUNT 6.4 K/mm3 (4.0-10.0)
[2016-12-13 07:57] LABS: ALBUMIN 3.4 GM/DL (3.2-5.2); ALBUMIN/GLOBULIN RATIO 0.85 (1.00-1.93); ALKALINE PHOSPHATASE 51 U/L (45-117); ALT/SGPT 22 U/L (12-78); ANION GAP 7 MEQ/L (8-16); AST/SGOT 14 U/L (15-37); BILIRUBIN,TOTAL 1.1 MG/DL (0.2-1.0); BLOOD UREA NITROGEN 14 MG/DL (7-18); CALCIUM LEVEL 9.1 MG/DL (8.5-10.1); CARBON DIOXIDE LEVEL 30 MEQ/L (21-32); CHLORIDE LEVEL 103 MEQ/L (98-107); CREATININE FOR GFR 0.87 MG/DL (0.70-1.30); GLOMERULAR FILTRATION RATE > 60.0 (>56); GLUCOSE, FASTING 94 MG/DL (70-105); POTASSIUM SERUM 4.3 MEQ/L (3.5-5.1); SODIUM LEVEL 140 MEQ/L (136-145); TOTAL PROTEIN 7.4 GM/DL (6.4-8.2)
[2016-12-13 08:00] VITALS: BP 152/82
[2016-12-13] MEDS: ALVIMOPAN 12 MG CAPSULE (ENTEREG) PO SCH (08:15)
[2016-12-13] MEDS: IBUPROFEN 600 MG TAB PO PRN (08:16)
[2016-12-13 12:00] VITALS: BP 132/78
[2016-12-13 16:00] VITALS: BP 128/72
[2016-12-13] MEDS: PERCOCET 5MG/325MG TAB PO PRN (16:37)
--- NOTE | 2016-12-29 07:28 | RO ---
DATE OF PROCEDURE: 12/10/2016 PREOPERATIVE DIAGNOSIS: Colostomy for elective closure. POSTOPERATIVE DIAGNOSES: 1. Colostomy for elective closure. 2. Extensive adhesions. 3. Parastomal hernia. PROCEDURES PERFORMED: 1. Laparoscopic closure of colostomy with extensive lysis of adhesions. 2. Resection of proximal rectum. 3. Repair of parastomal hernia. SURGEON: Dr. Das OVERLOCK COLLAR SETTER: Dr. Guy ANESTHESIA: General. INDICATIONS FOR THE PROCEDURE: Patient is a very pleasant, 56-year-old man who had undergone resection of a sigmoid stricture in early July of 2016. He suffered a anastomotic leak and required repeat surgery with takedown of his anastomosis with oversewing of his rectal stump and creation of a colostomy. He has now healed well and is for colostomy takedown. He was noted to have a parastomal hernia, which will be addressed at the same time. OPERATIVE PROCEDURE: The patient was taken to the operating room and placed under general endotracheal anesthesia. Thromboembolism deterrents (TEDs) and sequentials were utilized. A Persaud catheter was inserted. The patient's ostomy appliance was removed and his stoma was closed with two concentric pursestrings of #2-0. A digital rectal examination was performed and the anus gently dilated. The patient's abdomen and perineum were then prepped and draped in a sterile fashion. A dry gauze was placed over his ostomy. A Veress needle was inserted in the right side of the abdomen and the abdomen insufflated with carbon dioxide gas. A 5-mm port was placed over the scope and this was advanced to the abdominal wall without difficulty. Initial inspection showed extensive adhesions of the omentum and the small bowel. There was a clear space in the right lower quadrant and a second trocar was placed. Adhesions were lysed using the harmonic scalpel and with scissors as necessary. Once the anterior abdominal wall had been cleared, a Francy cannula was placed below the umbilicus along his old scar. A 10 mm camera was placed through this location. The lysis of adhesions continued. Adhesions around the inner aspect of the stoma were lysed and his parastomal hernia was better identified. The patient was placed into a steep Trendelenburg position and loops of bowel adherent into the pelvis were freed and elevated out of the pelvis to expose the rectal stump. The end of the rectum was identified, though this was largely reperitonealized. With further dissection, the tissues around the rectal stump were opened. This appeared to be quite scarred and narrowed proximally. Therefore, the dissection was carried distally, perhaps 5-7 cm, to identify healthier tissue for creation of an anastomosis. At this level, the rectum was then stapled with an echelon stapler. A small amount of fibrofatty tissue was dissected to expose the rectal wall to enhance the anastomosis. Once this had been completed, the small fragment of rectum was held with a grasper. At this point, the patient was returned to a flatter position and I elected to mobilize the end of the colon. An elliptical incision was made about the stoma. Dissection was carried down freeing the colon through the abdominal wall. The parastomal hernia was entered and the end of the colon was freed. Using retractors some adhesions of the colon proximal to the stoma were lysed to gain some additional length for the anastomosis. Overall length of the bowel appeared good. The end of the stoma with the attached skin were then excised off the end of the descending colon. Some fibrofatty tissue was trimmed from the end of the bowel. A pursestring suture of #2-0 Prolene was placed and the anvil of a 29 mm EEA stapler was placed and the pursestring tied down. The end of the bowel was irrigated and this was then reduced into the abdomen. Attention was turned to repair of the parastomal hernia. The small fragment of the rectum had been removed from the abdomen through the ostomy site and this was sent for permanent pathology. The parastomal hernia sac was dissected free from surrounding subcutaneous tissues. The anterior and posterior fascia and muscle was largely fused and I elected to just perform a mass closure of the abdominal wall at this level using interrupted simple sutures of #1 Vicryl. In this manner the rectus muscles with the anterior and posterior fascia were approximated securely. The wound was left open at this point. The abdomen was then reinflated. The anvil was grasped with a grasper. I then moved down to the perineum. The anus and distal rectum were gently dilated using the EEA sizers. The 29 mm EEA stapler was then advanced into the anus and advanced to the upper end of the rectum. The post of the stapler was advanced adjacent to the staple line and the anvil was attached and the stapler was closed, fired and removed. Inspection revealed two excellent tissue doughnuts within the stapler. The pelvis was filled with saline and the patient was taken out of the Trendelenburg position somewhat. I inserted a colonoscope into the anus and inspected the level of the anastomosis and also insufflated air. There was no air leakage identified within the abdomen. The anastomosis appeared good. The air was removed from the colon as thoroughly as possible and the scope was removed. The anastomosis was at approximately 12 cm or so proximal to the anus. I then changed gown and gloves and returned to the abdomen. The surgical team had changed gown and gloves at time of closure of the stoma site. The abdomen was inspected a final time with the laparoscope. A small amount of remaining irrigant was removed. There did appear to be a little tension on the anastomosis so a few additional attachments of the colon high in the left upper quadrant were lysed to allow for decreased tension on the anastomosis and this appeared excellent. After ensuring that hemostasis was excellent, an Endo Close device was used to place a single Vicryl suture in the inner aspect of the 12-mm port site in the right lower quadrant. The abdomen was then thoroughly deflated and the trocars were all removed. The incisions were all closed with buried Vicryl sutures and Steri-Strips. The patient tolerated the procedure well without apparent complication. He was awakened in the operating room, extubated and moved to the recovery room in stable condition. RACHELLE
--- NOTE | 2017-01-10 20:04 | DSES ---
DATE OF ADMISSION: 12/10/2016 DATE OF DISCHARGE: 12/13/2016 ADMISSION DIAGNOSIS: Colostomy for elective closure. HISTORY OF PRESENT ILLNESS The patient is a very pleasant 56-year-old man who was seen in June 2016, with a long history consistent with a partial colonic obstruction. A barium enema showed a stricture in the sigmoid colon. He underwent a laparoscopic sigmoid colectomy on July 19. His pathology revealed changes consistent with diverticulosis and diverticulitis. He developed an anastomotic leak and underwent exploratory laparotomy on July 22, 2016. He had significant peritonitis and underwent takedown of his anastomosis with oversewing of the rectal stump and an end colostomy. He healed well. The colonoscopy was performed on October 22, 2016. This showed a few remaining diverticula in the descending colon. The rectal stump appeared normal and was approximately 17-18 cm in length. The patient was counseled for closure of his colostomy and is now admitted to undergo a laparoscopic closure of his colostomy. HOSPITAL COURSE: The patient had performed a preoperative mechanical and antibiotic bowel preparation the day before admission using SuPrep and neomycin and Flagyl. He underwent a laparoscopic closure of his colostomy with extensive lysis of adhesions. A parastomal hernia was identified and this ventral hernia was repaired. He also had a resection of his proximal rectum due to some narrowing of this area. Postoperatively, the patient had an uncomplicated postoperative course. He required minimal narcotic analgesics and was advanced back to a regular diet by postoperative day two. He tolerated this well and was discharged home on 12/13/2016. FINAL DIAGNOSES: 1. Colostomy for elective closure. 2. Ventral (parastomal) hernia. 3. Obstructive sleep apnea. 4. Abdominal adhesions. PROCEDURE PERFORMED: 1. Laparoscopic closure of colostomy with extensive lysis of adhesions. 2. Resection of proximal rectum. 3. Repair of parastomal hernia. DISPOSITION: He was discharged home on 12/13/2016. He was advised to avoid any strenuous physical activity or lifting greater than 20 pounds. He was advised that he could shower as desired, but not take any baths at this time. He was not provided with any new prescriptions for pain medication. He was to continue his vitamin C and calcium and vitamin D as before admission. He was to followup in my office in approximately two weeks or sooner for any problems. RACHELLE
== END 2016-12-13 17:15 | disposition home or self-care (01) | DRG 221 ==
LOC: M OR 07:15 → M PED 15:43
PROVIDERS: ADMIT Surgery; ATTEND Surgery
PROC: 0DNE4ZZ Release Large Intestine, Percutaneous Endoscopic Approach (ICD-10-PCS; 2016-12-10)
PROC: 0DBM4ZZ Excision of Descending Colon, Percutaneous Endoscopic Approach (ICD-10-PCS; 2016-12-10)
PROC: 0WQF0ZZ Repair Abdominal Wall, Open Approach (ICD-10-PCS; 2016-12-10)
PROC: 0DBP4ZZ Excision of Rectum, Percutaneous Endoscopic Approach (ICD-10-PCS; principal; 2016-12-10 09:15)
DX: Z43.3 Encounter for attention to colostomy (principal); G47.33 Obstructive sleep apnea (adult) (pediatric); Z99.89 Dependence on other enabling machines and devices; Z87.891 Personal history of nicotine dependence; Z68.29 Body mass index [BMI] 29.0-29.9, adult; K43.5 Parastomal hernia without obstruction or gangrene

== ENCOUNTER → 2018-09-22 | Outpatient (REF) | payer BC, OTHER ==
[~2018-09-22] MED LIST changes: -ACET50TA PO; +CALC12504 PO; -CALC500T36 PO; +MAPA500T17 PO; +METR-265 PO; -METR1TAB66 PO
== END ==
LOC: M SMT 17:18
PROVIDERS: ATTEND Nurse Practitioner Family
DX: R97.20 Elevated prostate specific antigen [PSA] (principal)

== ENCOUNTER → 2018-11-10 | Outpatient (CLI) | payer BC, OTHER ==
--- NOTE | 2018-11-10 11:32 | REP ---
Prostate sonography: History: Elevated PSA. Sonographic findings: Trans rectal prostate sonography demonstrates unremarkable seminal vesicles. Prostate gland is heterogeneously enlarged with calcifications and cystic changes noted. Glandular dimensions are measured at 5.0 x 3.5 x 5.3 cm with a calculated glandular volume of 47.6 ml. There is an 8 mm right mid apical nodule. Transrectal sonographic guidance is provided to Dr. Zavala who performed trans rectal ultrasound guided needle biopsy procedure . Electronically Signed by Donta Jacobs MD 11/10/2018 11:23 A
== END ==
LOC: M SMT PRO 08:04
PROVIDERS: ATTEND Urology
DX: N40.0 Benign prostatic hyperplasia without lower urinary tract symptoms (principal); R97.20 Elevated prostate specific antigen [PSA]
CPT/HCPCS: 76872; 76942; G0416

== ENCOUNTER → 2019-05-28 | Outpatient (CLI) | payer BC, OTHER ==
[~2019-05-28] MED LIST changes: -CALC12504 PO; +CALC500T61 PO
[2019-05-29 15:06] LABS: PSA % FREE 11.9 % (.); PSA FREE 0.64 ng/mL; PSA TOTAL 5.4 ng/mL (0.0-4.0)
== END ==
LOC: M LAB 09:32
PROVIDERS: ATTEND Urology
DX: R97.20 Elevated prostate specific antigen [PSA] (principal)

== ENCOUNTER → 2019-06-03 | Outpatient (REF) | payer OTHER | LOC: M SMT 13:14 | PROVIDERS: ATTEND Nurse Practitioner Family | DX: R97.20 Elevated prostate specific antigen [PSA] (principal) ==

== ENCOUNTER → 2019-08-24 | Outpatient (CLI) | payer BC, OTHER ==
[2019-08-25 14:07] LABS: PSA TOTAL 3.1 ng/mL (0.0-4.0)
== END ==
LOC: M LAB 08:16
PROVIDERS: ATTEND Nurse Practitioner Family
DX: R97.20 Elevated prostate specific antigen [PSA] (principal)

== ENCOUNTER → 2019-11-15 | Outpatient (CLI) | payer BC, OTHER ==
[~2019-11-15] MED LIST changes: +VITA-243 PO; -VITA500T PO
[2019-11-17 20:26] LABS: PSA TOTAL 2.3 ng/mL (0.0-4.0)
== END ==
LOC: M LAB 15:58
PROVIDERS: ATTEND Nurse Practitioner Family
DX: R97.20 Elevated prostate specific antigen [PSA] (principal)

== ENCOUNTER → 2020-04-09 | Outpatient (CLI) | payer BC, OTHER ==
[~2020-04-09] MED LIST changes: +FINA5TAB2 PO; +METF500T13 PO
== END ==
LOC: M LABSMTC 08:33
PROVIDERS: ATTEND Anesthesiology
DX: Z01.812 Encounter for preprocedural laboratory examination (principal); Z20.828 Contact with and (suspected) exposure to other viral communicable diseases
CPT/HCPCS: C9803; U0003

== ENCOUNTER 2020-04-14 07:33 | Day surgery (SDC) | payer BC, OTHER ==
[~2020-04-14] VITALS: Ht 175.3 cm; Wt 101.2 kg
[~2020-04-14 07:33] MED LIST changes: +LIDOCAINE 2% 100MG/5ML SDV (FOR ANES.) As Ordered ONE; +NS 1,000 ML IV ONE; +propofoL 200 MG/20 ML VIAL As Ordered ONE
--- NOTE | 2020-04-14 08:52 | ROOR ---
Patient Name: Brian Diaz Procedure Date: 04/14/2020 8:30 AM Date of : 1960 Age: 60 Room: [facility] Gender: Male Note Status: Finalized Procedure: Colonoscopy Indications: High risk colon cancer surveillance: Personal history of colonic polyps, Family history of colon cancer in a first-degree relative before age 60 years Providers: Jeremie LAYTON MD Referring MD: MIKE JORGENSEN JR, MD Requesting Provider: Medicines: Monitored Anesthesia Care Complications: No immediate complications. Procedure: Pre-Anesthesia Assessment: - The heart rate, respiratory rate, oxygen saturations, blood pressure, adequacy of pulmonary ventilation, and response to care were monitored throughout the procedure. The Colonoscope was introduced through the anus and advanced to the terminal ileum, with identification of the appendiceal orifice and IC valve. The colonoscopy was performed without difficulty. The patient tolerated the procedure well. The quality of the bowel preparation was good. Findings: The perianal and digital rectal examinations were normal. There was evidence of a prior end-to-end colo-colonic anastomosis in the recto-sigmoid colon. This was characterized by healthy appearing mucosa. The exam was otherwise without abnormality on direct and retroflexion views. Multiple medium-mouthed diverticula were found in the descending colon. Impression: - End-to-end colo-colonic anastomosis, characterized by healthy appearing mucosa. - Diverticulosis in the descending colon. - The examination was otherwise normal on direct and retroflexion views. - No specimens collected. Recommendation: - Repeat colonoscopy in 5 years for screening purposes. Jeremie Layton MD Jeremie LAYTON MD 04/14/2020 8:51:33 AM Electronically signed by Jeremie LAYTON MD Number of Addenda: 0 Note Initiated On: 04/14/2020 8:30 AM Estimated Blood Loss: Estimated blood loss: none.
[2020-04-14 09:20] VITALS: BP 145/84
== END 2020-04-14 09:21 | disposition home or self-care (01) ==
LOC: M OPP 07:33
PROVIDERS: ATTEND Internal Medicine Gastroenterology
DX: Z12.11 Encounter for screening for malignant neoplasm of colon (principal); Z86.010 Personal history of colon polyps; Z80.0 Family history of malignant neoplasm of digestive organs; Z98.0 Intestinal bypass and anastomosis status; K57.30 Diverticulosis of large intestine without perforation or abscess without bleeding; Z79.84 Long term (current) use of oral hypoglycemic drugs; Z79.899 Other long term (current) drug therapy

== ENCOUNTER → 2020-06-20 | Outpatient (CLI) | payer BC, OTHER ==
[~2020-06-20] MED LIST changes: -LIDOCAINE 2% 100MG/5ML SDV (FOR ANES.) As Ordered ONE; -NS 1,000 ML IV ONE; -propofoL 200 MG/20 ML VIAL As Ordered ONE
== END ==
LOC: M LAB 08:35
PROVIDERS: ATTEND Nurse Practitioner Family
DX: R97.20 Elevated prostate specific antigen [PSA] (principal)

== ENCOUNTER → 2021-07-12 | Outpatient (CLI) | payer BC, OTHER ==
[~2021-07-12] MED LIST changes: -CEFD1CAP8 PO; +CEFD300C41 PO
== END ==
LOC: M LAB 16:25
PROVIDERS: ATTEND Physician Assistant
DX: R97.20 Elevated prostate specific antigen [PSA] (principal)

== ENCOUNTER → 2022-07-02 | Outpatient (CLI) | payer BC, OTHER | LOC: M LAB 09:26 | PROVIDERS: ATTEND Physician Assistant | DX: R97.20 Elevated prostate specific antigen [PSA] (principal) ==

== ENCOUNTER → 2023-07-03 | Outpatient (CLI) | payer BC, OTHER ==
[~2023-07-03] MED LIST changes: +CEFD1CAP9 PO; -CEFD300C41 PO
== END ==
LOC: M LAB 15:24
PROVIDERS: ATTEND Physician Assistant
DX: R97.20 Elevated prostate specific antigen [PSA] (principal)

== ENCOUNTER → 2023-09-23 | Outpatient (REF) | payer BC, OTHER ==
[2023-09-23 19:38] LABS: HEPATITIS C VIRUS ABY INDEX 0.02 INDEX (<0.8)
== END ==
LOC: M LAB REF 17:40
PROVIDERS: ATTEND Internal Medicine
DX: K74.00 Hepatic fibrosis, unspecified (principal)

== ENCOUNTER → 2023-11-04 | Outpatient (CLI) | payer BC | LOC: M RAD 07:21 | PROVIDERS: ATTEND Internal Medicine | DX: K74.00 Hepatic fibrosis, unspecified (principal); K76.0 Fatty (change of) liver, not elsewhere classified ==

== ENCOUNTER → 2024-06-22 | Outpatient (CLI) | payer BC, OTHER | LOC: M LAB 16:03 | PROVIDERS: ATTEND Physician Assistant | DX: R97.20 Elevated prostate specific antigen [PSA] (principal) ==

== ENCOUNTER → 2025-03-22 | Outpatient (CLI) | payer BC, OTHER ==
[2025-03-22 17:49] LABS: ESTIMATED AVERAGE GLUCOSE 128.0 MG/DL (60-110)
[2025-03-22 17:52] LABS: BASO # 0.1 10^3/uL (0.0-0.2); BASO % 0.8 % (0.0-1.0); EOS # 0.4 10^3/uL (0.0-0.5); EOS % 5.4 % (0.0-3.0); LYMPH # 1.9 10^3/uL (1.5-5.0); LYMPH % 25.6 % (24.0-44.0); MONO # 0.6 10^3/uL (0.0-0.8); MONO % 7.4 % (2.0-8.0); NEUTROPHILS # 4.5 10^3/uL (1.5-8.5); NEUTROPHILS % 60.4 % (36.0-66.0); PLATELET COUNT, AUTOMATED 172 10^3/uL (150-450)
[2025-03-22 18:16] LABS: CREATININE, URINE 130.8 MG/DL; MALB URINE SIEMENS 36.0 MG/L; MAU/CREAT RATIO 27.5 MCG/MG (0.0-30.0)
[2025-03-22 18:18] LABS: ALT/SGPT 28 U/L (7.0-40); AST/SGOT 22 U/L (<34); CALCIUM LEVEL 9.0 MG/DL (8.3-10.6); CARBON DIOXIDE LEVEL 25 MMOL/L (20-31); CHLORIDE LEVEL 105 MMOL/L (98-107); CHOLESTEROL LEVEL 205 MG/DL (<200); CHOLESTEROL RISK RATIO 5.24 (<5); CREATININE FOR GFR 0.88 MG/DL (0.70-1.30); GLOMERULAR FILTRATION RATE > 90.0 (>49); NON-HDL-C 165.9 MG/DL; POTASSIUM SERUM 3.9 MMOL/L (3.5-5.1); SODIUM LEVEL 142 MMOL/L (136-145); TRIGLYCERIDES LEVEL 473 MG/DL (<150)
== END ==
LOC: M LAB 16:01
PROVIDERS: ATTEND Internal Medicine
DX: E11.65 Type 2 diabetes mellitus with hyperglycemia (principal); I10 Essential (primary) hypertension; K75.81 Nonalcoholic steatohepatitis (NASH)